=== PATIENT | male | born 1945 | race Caucasian/White ===

== ENCOUNTER 2023-01-05 13:57 | Outpatient (OUT) | payer MEDICARE, SELFPAY ==
[2023-01-05 15:02] LABS: Prostate Specific Antigen Dx 6.59 ng/mL (<=4.00)
== END 2023-01-05 13:58 ==
LOC: LAB 14:01
PROVIDERS: PCP Family Medicine; Visit Provider Urology
DX: R97.20 Elevated prostate specific antigen [PSA] (principal)
CPT/HCPCS: 36415; 84153

== ENCOUNTER 2023-05-02 13:35 | Outpatient (OUT) | payer MEDICARE, SELFPAY ==
--- NOTE | 2023-05-02 13:45 | XR_ITS ---
The [address] [address] Patient Name: LYUDMILA BECERRIL MRN: [id number] date: 1945 Sex: M Assigned Patient Location: [facility] Current Patient Location: [facility] Accession/Order Number: [id number] Exam Date: 05/02/2023 13:52 Report Date: 05/02/2023 15:56 At the request of: ANA RODRIGUEZ Procedure: XR chest 2V EXAM: XR chest 2V HISTORY: Bronchitis J40 COMPARISON: None. TECHNIQUE: Frontal and lateral views of the chest. FINDINGS: The lungs are clear. Flow inspiratory volumes on the PA view. No pleural effusion or pneumothorax. The cardiomediastinal silhouette is unremarkable. No acute osseous or soft tissue abnormality. XR/XR chest 2V IMPRESSION: 1. No acute cardiopulmonary process. Electronically authenticated by: MAC PABON Date: 05/02/2023 15:56
== END 2023-05-02 13:36 | disposition home or self-care (01) ==
LOC: RAD 13:39
PROVIDERS: PCP Family Medicine; Visit Provider Family Medicine
DX: J40 Bronchitis, not specified as acute or chronic (principal)
CPT/HCPCS: 71046

== ENCOUNTER 2023-05-15 09:52 | Outpatient (OUT) | payer MEDICARE, SELFPAY ==
[2023-05-15 10:23] LABS: Basophils Absolute Auto 0.1 10^3/uL (0.0-0.1); Basophils Percent Auto 0.8 % (0.2-2.0); Eosinophils Absolute Auto 0.4 10^3/uL (0.0-0.7); Eosinophils Percent Auto 4.4 % (0.9-7.0); Hematocrit 40.6 % (42.0-54.0); Hemoglobin 12.9 g/dL (14.0-18.0); Immature Granulocytes Abs Auto 0.03 10^3/uL (0.00-0.03); Immature Granulocytes Pct Auto 0.4 % (0.0-0.5); Lymphocytes Absolute Auto 1.6 10^3/uL (1.2-3.8); Lymphocytes Percent Auto 19.2 % (20.5-60.0); Mean Corpuscular HGB Conc 31.8 g/dL (29.9-35.2); Mean Corpuscular Hemoglobin 27.7 pg (25.9-34.0); Mean Corpuscular Volume 87.3 fL (80.0-94.0); Monocytes Percent Auto 11.8 % (1.7-12.0); Neutrophils Absolute Auto 5.4 10^3/uL (1.4-6.5); Neutrophils Percent Auto 63.4 % (43.0-75.0); Platelet Count 254 10^3/uL (150-450); Red Blood Count 4.65 10^6/uL (4.70-6.10); Red Cell Distribution Width 16.5 % (11.0-15.0); White Blood Count 8.5 10^3/uL (4.0-11.0)
[2023-05-15 11:08] LABS: Alanine Aminotransferase 30 U/L (16-63); Albumin Globulin Ratio 0.9; Albumin Level 3.8 g/dL (3.4-5.0); Alkaline Phosphatase 71 U/L (46-116); Anion Gap 15.2; Aspartate Amino Transferase 20 U/L (15-37); BUN Creatinine Ratio 22.6; Bilirubin Total 0.5 mg/dL (0.2-1.0); Calcium 9.9 mg/dL (8.5-10.1); Carbon Dioxide 26.1 mmol/L (21.0-32.0); Chloride 101 mmol/L (98-107); Chol HDL Ratio 3.3; Cholesterol 159 mg/dL (<=200); Estimated GFR (African America >60 (>=60); Estimated GFR (Non-African Ame >60 (>=60); Glucose 100 mg/dL (74-106); HDL Cholesterol 48 mg/dL (40-60); LDL Cholesterol Calculated 88.4 mg/dL; Potassium 4.3 mmol/L (3.5-5.1); Sodium 138 mmol/L (136-145); Total Protein 7.8 g/dL (6.4-8.2); Triglycerides 113 mg/dL (<=150); VLDL CHOLESTEROL 22.6 mg/dL
== END 2023-05-15 09:53 | disposition home or self-care (01) ==
LOC: LAB 09:55
PROVIDERS: PCP Family Medicine; Visit Provider Nurse Practitioner Acute Care
DX: I25.10 Atherosclerotic heart disease of native coronary artery without angina pectoris (principal); E78.2 Mixed hyperlipidemia
CPT/HCPCS: 36415; 80053; 80061; 85025

== ENCOUNTER 2023-12-23 08:03 | Outpatient (OUT) | payer MEDICARE, SELFPAY ==
[2023-12-23 09:24] LABS: Chol HDL Ratio 2.7; Cholesterol 112 mg/dL (<=200); HDL Cholesterol 42 mg/dL (40-60); LDL Cholesterol Calculated 41.6 mg/dL; Triglycerides 142 mg/dL (<=150); VLDL CHOLESTEROL 28.4 mg/dL
== END 2023-12-23 08:04 | disposition home or self-care (01) ==
PROVIDERS: PCP Family Medicine
DX: E78.2 Mixed hyperlipidemia (principal)
CPT/HCPCS: 36415; 80061

== ENCOUNTER 2024-01-19 08:18 | Outpatient (OUT) | payer MEDICARE, SELFPAY ==
--- NOTE | 2024-01-19 | NM_ITS ---
Patient Name: LYUDMILA BECERRIL MR#: [id number] : 1945 Exam Date: 01/19/2024 Ordering Doctor: DR VINCE JACOBSON M.D. RADIOLOGY REPORT PROCEDURE: NM LISA PERF SPECT REST STR COMPARISON: None. INDICATIONS: OTHER CHEST PAIN TECHNIQUE: Exam Description: Stress/Rest one day protocol gated SPECT Rest Imagin.2 mCi Tc-99m Cardiolite IV on 01/19/2024 Stress Imaging 29.7 mCi Tc-99m Cardiolite IV on 01/19/2024 Exercise Protocol: Zaki Heart Rate (bpm): Rest: 67 Max: 126 PMHR: 87 Blood Pressure: Rest: 120/72 Max: 160/74 Exercise Time: Minutes: 5 Seconds: 26 Stage Reached: Stage: 2 Mets 7.0 Symptoms: neck pain Rest and peak stress ECG findings were abnormal and the exercise portion of the study was abnormal per attending physician Dr. Jacobson due to EKG changes. For more details please see separate cardiac stress test report. FINDINGS: QUALITY OF STUDY: Excellent. PERFUSION DEFECT: None. LOCATION: N/A SIZE: N/A. SEVERITY: N/A. TYPE: N/A. WALL MOTION: Normal. LV SIZE: Normal. 56 mL. TID / TCD: None; 0.8 LVEF: Normal. Calculated EF 79%. SUMMARY: Myocardial perfusion imaging study is NORMAL. CONCLUSION: 1. Normal myocardial perfusion scan with no reversible ischemia 2. Abnormal exercise test secondary to EKG changes Dictated by: Maged Day MD on 01/19/2024 at 13:31 Approved by: Maged Day MD on 01/19/2024 at 13:34
--- NOTE | 2024-01-19 | PCN_ITS ---
CARDIAC STRESS TEST Requesting Physician: Procedure Date: 01/19/2024 This was a treadmill exercise stress test with myocardial perfusion imaging performed at the [facility] on 01/19/2024. Informed consent was obtained. The patient was attached to electrocardiographic monitoring. An intravenous line was secured. Baseline vital signs and EKG were obtained. The patient exercised on the treadmill according to the Zaki protocol for a total of 5 minutes and 26 seconds, and reached stage 2 of the Zaki protocol and achieved 7 METS. Resting heart rate was 67 and maximum heart rate was 126 BPM, representing 87% of maximal predicted heart rate. Resting blood pressure was 120/72 and maximum blood pressure was 160/74. Resting ECG showed normal sinus rhythm with no ischemic changes. ECG during peak exercise showed evidence of sinus tachycardia with [address] segment depressions in leads 2, 3, AVF, V4, V5, V6. ECG during recovery showed resolution of the ischemic changes and sinus rhythm. The patient did not have symptoms during the test. SUMMARY OF THE FINDINGS: 1. Positive treadmill exercise stress test for evidence of ischemic ECG changes. 2. Mccurdy treadmill score of -4.5 is associated with an intermediate risk for snf cardiac events. 3. Myocardial perfusion images will be reported separately. GRETCHEND
--- NOTE | 2024-01-19 08:20 | CA_ITS ---
Patient Name: LYUDMILA BECERRIL MR#: [id number] : 1945 Exam Date: 01/19/2024 Ordering Doctor: DR VINCE JACOBSON M.D. ECHOCARDIOGRAM REPORT PROCEDURE: CA ECHO DOPPLER COMPLETE INDICATIONS: Dyspnea COMPARISON: None. DESCRIPTION: COMPLETE ECHOCARDIOGRAM Real-time transthoracic echocardiography with 2D, M-mode, spectral and color flow Doppler performed. QUALITY: Technical quality was good. LEFT VENTRICLE: Normal chamber size. Proximal septal hypertrophy (sigmoid septum). Mild concentric hypertrophy. Global left ventricular systolic function is normal. LV EF: Estimated left ventricular ejection fraction is 60% DIASTOLIC: Normal diastolic function. ATRIAL SEPTUM: LEFT ATRIUM: Normal chamber size. RIGHT ATRIUM: Normal chamber size. RIGHT VENTRICLE: Normal chamber size. Normal right ventricular systolic function. TRICUSPID VALVE: Normal mobility and thickness. No stenosis with trivial regurgitation. No evidence of pulmonary hypertension. RVSP 26 mmHg MITRAL VALVE: Normal mobility and thickness. No evidence of mitral valve stenosis. There is no mitral annular calcification. Trivial mitral regurgitation. AORTIC VALVE: Normal trileaflet appearance. Normal leaflet mobility. No evidence of aortic valve stenosis. No aortic regurgitation. AORTIC ROOT: Normal diameter and appearance. PULMONIC VALVE: Normal thickness and mobility. No stenosis. Trivial regurgitation. PERICARDIUM: No evidence of pericardial effusion. IVC: Collapses with inspirations. Normal size. PLEURA: CONCLUSION: 1. Mild concentric left ventricular hypertrophy with normal systolic function. LVEF is estimated at 60%. 2. Normal diastolic function. 3. Normal right ventricular size and systolic function. 4. No significant valvular dysfunction. 5. Normal right-sided pressures. Adult Echocardiography Procedure Report Left Ventricle LVEDD (3.7 - 5.6 cm): 4.13 cm LVESD (2.2 - 4.0 cm): 2.56 cm LVIVS thickness (0.6 - 1.2 cm): 1.17 cm LVPW thickness (0.5 - 1.0 cm): 1.02 cm e': 0.10 m/s E - e': 7.42 LVOT Max Gradient: 4.05 mm[Hg] LVOT Area (cm2): 1.01 m/s Peak Velocity (LVOT): 1.01 m/s Mean Velocity (LVOT): 0.66 m/s LVOT Diameter 2.05 cm Left Ventricular Ejection Fraction: 60 % Left Atrium LA Volume Index (2D A2C): 26.24 ml/m2 Left Atrium Systolic Dimension: 4.21 cm Mitral Valve MV E to A Ratio: 1 Mitral Valve A-Wave Peak Velocity: 0.76 m/s Mitral Valve E-Wave Peak Velocity: 0.76 m/s Right Ventricle RV Internal Diastolic Dimension: 3.17 cm Aorta AO Root Diam: 2.92 cm Ascending Ao Diam: 2.99 cm Aortic Valve AoV Area (Peak Alexander): 2.63 cm2, 2.63 cm2 AoV Area (VTI): 2.91 cm2, 2.91 cm2 Peak Velocity(Antegrade Flow): 1.26 m/s Peak Gradient(Antegrade Flow): 6.39 mm[Hg] Mean Velocity(Antegrade Flow): 0.83 m/s Mean Gradient(Antegrade Flow): 3.21 mm[Hg] Velocity Time Integral: 27.48 cm Tricuspid Valve Peak Velocity (Regurgitant Flow): 1.70 m/s, 2.42 m/s, 1.92 m/s Pulmonic Valve Mean Gradient: 2.69 mm[Hg], 3.24 mm[Hg] Mean Velocity: 0.76 m/s, 0.81 m/s Peak Velocity: 1.35 m/s Peak Gradient: 5.93 mm[Hg], 8.70 mm[Hg] Right Atrium Right Atrium Systolic Pressure: 20.20 ml, 20.20 ml Dictated by: Vince Jacobson M.D. on 01/22/2024 at 16:29 Approved by: Vince Jacobson M.D. on 01/22/2024 at 16:31
== END 2024-01-19 08:19 | disposition home or self-care (01) ==
LOC: NM 08:18
PROVIDERS: PCP Family Medicine; Visit Provider Internal Medicine Interventional Cardiology
DX: R07.89 Other chest pain (principal); R06.2 Wheezing
CPT/HCPCS: 78452; 93017; 93306; A9500

== ENCOUNTER 2024-02-12 09:12 | Outpatient (OUT) | payer MEDICARE, SELFPAY ==
--- OUTSIDE RECORDS SUMMARY | 2024-02-12 09:24 | XMS_ITS | CCD ---
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 Name Role Phone Merna Zee Unavailable Misha Kyle Unavailable MaryAsad khan Unavailable ANANYA RODRIGUEZ Primary Care Physician MD Ananya Rodriguez Primary Care Provider MD Dev Mckenzie Attending Provider Rishabh Draper Unavailable Anthony Rodriguez Unavailable Sylvia Enriquez Unavailable MD Ananya Rodriguez Primary Care Provider MD Rishabh Draper Attending Provider [phone] Ananya Rodriguez Unavailable Feng Marie Unavailable DR ANANYA RODRIGUEZ Consulting Unavailable JENNIFER, DR ANANYA Power Attending Unavailable JENNIFER, DR ANANYA Power Admitting Unavailable JENNIFER, DR ANANYA Power Primary Care Unavailable DR DEV GUTIERREZ Consulting Unavailable BHARAT Navas, DR BAIRES Attending Unavailable BHARAT Navas, DR BAIRES Admitting Unavailable JENNIFER, DR ANANYA Power Primary Care Unavailable JENNIFER, DR ANANYA Power Attending Unavailable JENNIFER, DR ANANYA Power Admitting Unavailable JENNIFER, DR ANANYA Power Primary Care Unavailable JENNIFER, DR ANANYA Power Consulting Unavailable SYLVIA ENRIQUEZ Admitting Unavailable SYLVIA ENRIQUEZ Attending Unavailable JENNIFER, DR ANANYA Power Primary Care Unavailable OTIS ., JARED Admitting Unavailable OTIS ., JARED Attending Unavailable DR JAMIN SIMS Consulting Unavailable JENNIFER, DR ANANYA oPwer Primary Care Unavailable JONN Navas, DR PETERSON Consulting Unavailable CHRISTINE DAVID Consulting Unavailable MACARIO BLANCHARD Consulting Unavailable SISTER, ALTHEA Consulting Unavailable OTIS ., JARED Consulting Unavailable DR ANANYA RODRIGUEZ Primary Care Unavailable JAIRO, DR CLARKE Admitting Unavailable DR VINCE GILL Consulting Unavailable JAIRO, DR CLARKE Attending Unavailable MD Ananya Rodriguez Primary Care Provider [phone] MD Rishabh Draper Attending Provider [phone] MD Sylvia Enriquez Attending Provider Ananya Rodriguez Primary Care Unavailable Sylvia Barros Attending Unavailable Sylvia Barros Admitting Unavailable MD Sylvia Barros Attending Provider MD Ananya Rodriguez Primary Care Provider [phone] Dev MCKENZIE Attending Unavailable Dev MCKENZIE Attending Unavailable Dev MCKENZIE Attending Unavailable Dev MCKENZIE Referring Unavailable Dev MCKENZIE Admitting Unavailable VINCE GILL Attending Unavailable EDUIN CURRY Attending Unavailable Allergies Allergy Classification Reported Allergen(s) Allergy Type Date of Onset Reaction(s) Facility (1 source) atorvastatin; Translations: [ATORVASTATIN] Drug Allergy 07-26-2017 [facility] Repository Medications Current Medications Medication Drug Class(es) Dates Sig (Normalized) Sig (Original) acetaminophen 325 mg oral tablet (8 sources) take 1 tablet by mouth every four hours Tylenol 325 MG 1 tablet as needed Orally every 4 hrs Active [id number] actuat albuterol 0.09 mg/actuat metered dose inhaler (2 sources) beta2-Adrenergic Agonist Start: 05-02-2023 take 2 puff(s) by inhalation every four hours as needed Albuterol Sulfate HFA 108 (90 Base) MCG/ACT 2 puff Inhalation every 4 hrs prn Apr, Active ascorbic acid 500 mg oral capsule (1 source) Vitamin C Vitamin C 500 MG Orally Active aspirin 81 mg delayed release oral tablet (18 sources) Platelet Aggregation Inhibitor, Nonsteroidal Anti-inflammatory Drug Start: 08-17-2021 take 81 mg by mouth once daily at bedtime Aspirin Active 81 MG PO Daily at bedtime August 17, 2021 3:00pm Start: 09-25-2019 aspirin 81 mg, Refills(s) 0 Start Date: 09/25/19 Status: Ordered Start: 04-20-2018 End: 08-17-2021 take 1 dose by mouth twice daily Aspirin Discontinued 81 MG PO Twice daily 0 April 20, 2018 12:00am August 17, 2021 3:01pm Last dose ~ 2 months ago Start: 04-04-2018 End: 04-20-2018 take 1 tablet by mouth once daily at bedtime Aspirin (Aspirin Low Dose) 81 mg Tablet,Delayed Release (Dr/Ec) Discontinued 81 MG PO Daily at bedtime April 04, 2018 12:00am April 20, 2018 1:17pm azithromycin 250 mg oral tablet (2 sources) Macrolide Antimicrobial Start: 04-13-2023 Azithromycin 250 MG as directed Orally 2 tabs po today, then 1 tab daily x 4 more days for 5 Apr, Active benzonatate 200 mg oral capsule (2 sources) Non-narcotic Antitussive Start: 04-13-2023 take 1 capsule by mouth every eight hours Benzonatate 200 MG 1 capsule Orally Three times a day for 10 day(s) Apr, Active calcium carbonate 750 mg chewable tablet (5 sources) Start: 06-17-2019 Calcium Carbonate (Tums E-X) 300 mg (750 mg) Tablet,Chewable Active 2 TAB PO As Directed June 17, 2019 1:00am cefdinir 300 mg oral capsule (2 sources) Cephalosporin Antibacterial Start: 05-02-2023 Cefdinir 300 MG as directed Orally bid for 7 days Apr, Active cephalexin 500 mg oral tablet (3 sources) Cephalosporin Antibacterial Start: 09-25-2019 take 1 capsule by mouth every twelve hours Keflex 500 MG 1 capsule Orally every 12 hrs for 10 day(s) Sep, Active cholecalciferol 0.025 mg oral tablet (5 sources) Vitamin D Start: 08-17-2021 take 1 tablet by mouth once daily Cholecalciferol (Vitamin D3) (Vitamin D3) 25 mcg (1,000 unit) Tablet Active 25 MCG PO Daily August 17, 2021 1:00am clobetasol propionate 0.5 mg/ml topical cream (1 source) Corticosteroid Clobetasol Propionate 0.05 % 1 application Externally Twice a day for 10 days Active colchicine 0.6 mg oral tablet (8 sources) Start: 07-17-2019 Colchicine 0.6 MG take 2 tablets, then take 1 tablet 1 hour after first two Orally Jul, Active CoQ10 (3 sources) Start: 09-25-2019 take 1 mg by mouth once daily CoQ10 mg, Oral, Daily, Refills(s) 0 Start Date: 09/25/19 Status: Ordered Diclofenac (20 sources) Nonsteroidal Anti-inflammatory Drug Start: 01-19-2023 Pennsaid 2 % 2 pumps Externally Twice a day for 30 days Jan, Active Start: 01-19-2023 Pennsaid 2 % 2 pumps Externally Twice a day for 30 days Jan, Active Start: 01-19-2023 Voltaren 1 % a pply 1-2 grams to the affected area Externally BID for 30 days Jan, Active Start: 01-19-2023 Voltaren 1 % a pply 1-2 grams to the affected area Externally BID for 30 days Jan, Active Start: 10-12-2022 take 75 mg by mouth once daily Diclofenac Sodium Active 75 MG PO Daily October 12, 2022 1:00am Start: 09-07-2022 take 1 tablet by thang th every twelve hours Diclofenac Sodium 75 MG 1 tablet as needed Orally Twice a day for 30 days Sep, Active Start: 01-01-2020 Voltaren 1 % a pply 1-2 grams to affected area Transdermal BID for 30 days December, Active Start: 06-17-2019 End: 08-17-2021 take 75 mg by mouth twice daily at mealtime Diclofenac Sodium Discontinued 75 MG PO TWICE DAILY WITH MEALS June 17, 2019 1:00am August 17, 2021 3:00pm finasteride 1 mg oral tablet (10 sources) 5-alpha Reductase Inhibitor Start: 12-06-2022 take 1 mg by mouth once daily Finasteride Active 1 MG PO Daily December 06, 2022 12:00am hydroCHLOROthiazide 12.5 mg / losartan potassium 50 mg oral tablet (8 sources) Thiazide Diuretic, Angiotensin 2 Receptor Bobby Start: 01-15-2021 take 1 tablet by mouth once daily in the morning Losartan-Hydroch lorothiazide Active 1 TAB PO Every morning August 17, 2021 1:00am Hydrochlorothiazide-25 mg 25 MG (8 sources) take 1 tablet by mouth once daily in the morning Hydrochlorothiaz karyn-25 mg 25 MG 1 tablet in the morning Orally Once a day Active Opbrh-Ow-8-Cfz-Fzj-Iukkjb o-Ast (Megared Stratton-3 Krill Oil) [phone] mg Capsule (5 sources) Start: 04-04-2018 Pcsul-Ou-6-Dha-E rz-Ecikkvc-Hvl (Megared Stratton-3 Krill Oil) [phone] mg Capsule Active 1 CAP PO Daily at bedtime April 03, 2018 11:00pm Start: 04-04-2018 Awxqz-Jz-8-Dha -Mvo-Xvsmanb-Zlk (Megared Stratton-3 Krill Oil) [phone] mg Capsule Active 1 CAP PO Daily at bedtime April 04, 2018 12:00am losartan potassium 25 mg oral tablet (20 sources) Angiotensin 2 Receptor Bobby Start: 01-06-2023 losartan 25 mg Tab Refills(s) 0 Start Date: 01/06/23 Status: Ordered Start: 04-04-2018 End: 08-17-2021 take 50 mg by mouth once daily in the morning Losartan Discontinued 50 MG PO Every morning April 04, 2018 12:00am August 17, 2021 2:59pm Low-Dose Aspirin (15 sources) Low-Dose Aspirin Active MegaRed Stratton-3 Krill Oil 500 MG (8 sources) MegaRed Stratton-3 Krill Oil 500 MG Orally Active 24 hr metoprolol succinate 25 mg extended release oral tablet (20 sources) beta-Adrenergic Bobby Start: 01-17-2020 take 25 mg by mouth once daily at bedtime Metoprolol Succinate Active 25 MG PO Daily at bedtime August 17, 2021 1:00am take 1 capsule by mouth once adrianna ly Metoprolol Succinate 25 MG 1 capsule Orally Once a day Active metroNIDAZOLE 500 mg oral tablet (15 sources) Nitroimidazole Antimicrobial take 1 tablet by mouth every twelve hours metroNIDAZOLE 500 MG 1 tablet Orally twice a day Active Stratton 3 500 (20 sources) Stratton 3 500 Not- Taking Stratton 3 500 Acti ve omeprazole 20 mg oral tablet (20 sources) Proton Pump Inhibitor Start: 09-25-2019 take 20 mg by mouth once daily omeprazole 20 mg, Oral, Daily, Refills(s) 0 Start Date: 09/25/19 Status: Ordered Start: 04-20-2018 End: 06-17-2019 take 20 mg by mouth once daily Omeprazole Discontinued 20 MG PO Daily June 17, 2019 12:48pm June 17, 2019 1:13pm Start: 04-04-2018 take 20 mg by mouth two times weekly Omeprazole Active 20 MG PO Twice a Week April 04, 2018 12:00am potassium citrate 10 meq extended release oral tablet (20 sources) Start: 08-17-2021 take 30 mEq by mouth twice daily Potassium Citrate Active 30 MEQ PO Twice daily August 17, 2021 12:00am Start: 01-17-2020 take 10 mEq by mouth twice adrianna ly Potassium Citrate Active 10 MEQ PO Twice daily August 17, 2021 1:00am take 3 tablets by [facility] every twelve hours Potassium Citrate ER 10 MEQ (1080 MG) 3 tablets Orally Twice a day for 30 day(s) Active Qunol Ultra CoQ10 100-150 MG -UNIT (20 sources) Qunol Ultra CoQ1 0 100-150 MG-UNIT Orally Not-Taking Qunol Ultra CoQ1 0 100-150 MG-UNIT Orally Active rosuvastatin 20 mg oral capsule (20 sources) HMG-CoA Reductase Inhibitor Start: 09-25-2019 take 20 mg by mouth once daily rosuvastatin 20 mg, Oral, Daily, Refills(s) 0 Start Date: 09/25/19 Status: Ordered Start: 04-04-2018 take 10 mg by mouth once daily at bedtime Rosuvastatin Active 10 MG PO Daily at bedtime April 04, 2018 12:00am take 1 tablet by [facility] every twenty-four hours Rosuvastatin Calcium 20 MG 1 tablet Orally Once a day Active ubidecarenone 100 mg oral capsule (5 sources) Start: 04-04-2018 Coenzyme Q10 (Coq-10) 100 mg Capsule Active 100 MG PO Every morning April 04, 2018 12:00am ubiquinol 100 mg oral capsule (4 sources) Qunol Ultra CoQ1 0 100-150 MG-UNIT Orally Active Vitamin A (3 sources) Vitamin A Start: 09-25-2019 vitamin A Refills(s) 0 Start Date: 09/25/19 Status: Ordered Vitamin A 36439 UNIT (20 sources) take 1 capsule by mouth once daily Vitamin A 70834 UNIT 1 capsule Orally Once a day Not-Taking take 1 capsule by mouth once adrianna ly Vitamin A 24126 UNIT 1 capsule Orally Once a day Active Vitamin A-Vitamin C-Vitamin E (5 sources) Start: 08-17-2021 take 1 tablet by mouth once daily Vitamin A-Vitamin C-Vitamin E Active 1 TAB PO Daily August 17, 2021 12:00am Start: 08-17-2021 take 1 tablet by thang th once daily Vitamin A-Vitamin C-Vitamin E Active 1 TAB PO Daily August 17, 2021 1:00am Vitamin C 500 MG (20 sources) Vitamin C 500 MG Orally Not-Taking Vitamin C 500 MG Orally Active Vitamin D3 (20 sources) Vitamin D3 Not-T aking Vitamin D3 Activ e Vitamin E (3 sources) Start: 09-25-2019 vitamin E Oral , Daily, Refills(s) 0 Start Date: 09/25/19 Status: Ordered Vitamin E 100 UNIT (20 sources) take 1 capsule by mouth once daily Vitamin E 100 UNIT 1 capsule Orally Once a day Not-Taking take 1 capsule by mouth once adrianna ly Vitamin E 100 UNIT 1 capsule Orally Once a day Active Completed/Discontinued Medications Medication Drug Class(es) Dates Sig (Normalized) Sig (Original) acetaminophen 325 mg / HYDROcodone bitartrate 5 mg oral tablet (5 sources) Opioid Agonist Start: 08-26-2021 End: 10-12-2022 take 1 tablet by mouth every four to six hours Hydrocodone-Acetami nophen Discontinued 1 - 2 TAB PO EVERY 4-6 HOURS 50 7 August 26, 2021 October 12, 2022 9:09am acetaminophen 325 mg / oxyCODONE hydrochloride 5 mg oral tablet (10 sources) Opioid Agonist Start: 07-02-2019 End: 08-17-2021 take 1 tablet by mouth every four to six hours Oxycodone-Acetamino phen (Percocet) 5-325 mg tablet Discontinued 1 - 2 TAB PO EVERY 4-6 HOURS 30 July 02, 2019 August 17, 2021 3:01pm Start: 04-20-2018 End: 06-17-2019 take 1 tablet by mouth every three hours Oxycodone-Acetaminophen Discontinued 1 T AB PO Q3H April 20, 2018 June 17, 2019 12:58pm apixaban 2.5 mg oral tablet (10 sources) Factor Xa Inhibitor Start: 07-01-2019 End: 08-17-2021 take 1 tablet by mouth twice daily Apixaban (Eliquis) 2.5 mg Tablet Discontinued 2.5 MG PO Twice daily July 02, 2019 1:00am August 17, 2021 3:00pm ciprofloxacin 500 mg oral tablet (13 sources) Quinolone Antimicrobial Start: 01-06-2023 Cipro 500 mg Tab 500 mg = 1 tab(s), Oral, As Directed, Patient to take 1 tab the day before procedure and the 2nd tab the day of procedure once completed, # 2 tab(s), Refills(s) 0, Pharmacy: [facility]/pharmacy #[id number], 160, cm, 01/06/23 8:34:00 EDT, Height/Length Dosing, 70,... Start Date: 01/06/23 Status: Ordered take 1 tablet by mouth every twe lve hours Cipro 500 MG 1 tablet Orally every 12 hrs Active docusate sodium 100 mg oral capsule (5 sources) Start: 07-02-2019 End: 08-17-2021 take 100 mg by mouth twice daily Docusate Sodium Discontinued 100 MG PO Twice daily 0 July 02, 2019 1:00am August 17, 2021 3:00pm doxycycline hyclate 100 mg oral tablet (5 sources) Tetracycline- class Drug Start: 08-26-2021 End: 10-12-2022 take 100 mg by mouth twice daily Doxycycline Hyclate Discontinued 100 MG PO Twice daily 10 August 26, 2021 1:00am October 12, 2022 9:09am hyaluronate (20 sources) Start: 02-06-2018 Euflexxa 03 Ju l, 2017 2 mL Start: 01-30-2018 Euflexxa 26 Ju n, 2017 2 mL Start: 01-22-2018 Euflexxa 18 Ju n, 2017 2 mL hydroCHLOROthiazide 25 mg oral tablet (5 sources) Thiazide Diuretic Start: 04-04-2018 End: 08-17-2021 take 12.5 mg by mouth once daily in the morning Hydrochlorothiazide Discontinued 12.5 MG PO Every morning April 04, 2018 12:00am August 17, 2021 3:00pm hydrOXYzine pamoate 50 mg oral capsule (15 sources) Antihistamine Start: 07-02-2019 End: 08-17-2021 take 25 mg by mouth every three hours Hydroxyzine Pamoate Discontinued 25 MG PO Q3H 0 July 02, 2019 1:00am August 17, 2021 3:01pm Start: 07-02-2019 End: 08-17-2021 take 50 mg by mouth every three hours Hydroxyzine Pamoate Discontinued 50 MG PO Q3H 0 July 02, 2019 1:00am August 17, 2021 3:00pm Start: 04-20-2018 End: 06-17-2019 take 50 mg by mouth every three hours Hydroxyzine Pamoate Discontinued 50 MG PO Q3H 0 April 20, 2018 12:00am June 17, 2019 12:45pm triamcinolone acetonide 40 mg/ml injectable suspension (20 sources) Corticosteroid Start: 10-19-2022 Kenalog-40 Jan, 40 mg Start: 06-29-2021 Kenalog -40 mg Jun, 40 mg Start: 06-23-2021 Kenalog -40 mg Jun, 20 mg Start: 02-24-2021 Kenalog -40 mg Feb, 20 mg Start: 12-02-2020 Kenalog -40 mg Nov, 40 mg Start: 09-23-2020 Kenalog -40 mg Sep, 40 mg Start: 01-01-2020 Kenalog -40 mg December, 40 mg Start: 05-08-2019 Kenalog -40 mg May, 40 mg Start: 11-28-2018 Kenalog -40 mg Nov, 40 mg Vitamin A,C,E And Zinc (5 sources) Start: 04-04-2018 End: 06-17-2019 take 1 tablet by mouth once daily in the morning Vitamin A,C,E And Zinc Discontinued 1 TAB PO Every morning April 03, 2018 11:00pm June 17, 2019 11:48am Start: 04-04-2018 End: 06-17-2019 take 1 tablet by mouth once daily in the morning Vitamin A,C,E And Zinc Discontinued 1 TAB PO Every morning April 04, 2018 12:00am June 17, 2019 12:48pm Problems Active Problems Problem Classification Problem Date Documented Da te Episodic/Chronic Acute posthemorrhagic anemia (5 sources) Acute posthemorrhagic anemia; Translations: [ACUTE POSTHEMORRHAGIC ANEMIA] Onset: 11-29-2022 Episodic Allergic reactions (1 source) Dermatitis, unspecified Episodic Calculus of urinary tract (10 sources) Kidney stone; Translations: [Calculus of kidney] Onset: 01-05-2022 Episodic Chronic obstructive pulmonary disease and bronchiectasis (2 sources) Bronchitis, not specified as acute or chronic Episodic Complication of device; implant or graft (3 sources) Pain due to internal orthopedic prosthetic devices, implants and grafts, initial encounter; Translations: [Pain due to knee joint prosthesis] Onset: 12-26-2023 12-26-2023 Episodic Coronary atherosclerosis and other heart disease (2 sources) Atherosclerotic heart disease of [place] coronary artery without angina pectoris; Translations: [Atherosclerotic heart disease of [place] coronary artery without angina pectoris] Onset: 11-24-2023 Chronic Deficiency and other anemia (5 sources) Anemia due to blood loss; Translations: [Iron deficiency anemia secondary to blood loss (chronic)] Chronic Disorders of lipid metabolism (7 sources) Hyperlipidemia; Translations: [Pure hypercholesterolemia, unspecified] Onset: 10-27-2022 09-25-2019 Chronic Esophageal disorders (1 source) Gastro-esophageal reflux disease without esophagitis; Translations: [GERD WITHOUT ESOPHAGITIS] Onset: 10-27-2022 Chronic Essential hypertension (14 sources) Hypertensive disorder; Translations: [Essential (primary) hypertension] Onset: 10-27-2022 09-25-2019 Chronic Gastrointestinal hemorrhage (5 sources) Melena; Translations: [MELENA] Onset: 10-27-2022 Episodic Genitourinary symptoms and ill-defined conditions (2 sources) Post-void dribbling; Translations: [Post-void dribbling] Onset: 01-05-2022 Chronic Genitourinary symptoms and ill-defined conditions (9 sources) Abnormal urinary product; Translations: [Hypocitraturia] Onset: 12-30-2021 Episodic Gout and other crystal arthropathies (20 sources) Primary gout; Translations: [Idiopathic gout, right ankle and foot] Chronic Headache; including migraine (1 source) Headache; including migraine; Translations: [HEADACHE UNSPECIFIED] Onset: 09-20-2022 Hyperplasia of prostate (7 sources) Benign prostatic hypertrophy with outflow obstruction; Translations: [Benign prostatic hyperplasia with lower urinary tract symptoms] Onset: 01-05-2022 Chronic Inflammatory conditions of male genital organs (3 sources) Prostatitis 09-25-2019 Episodic Noninfectious gastroenteritis (2 sources) Noninfective gastroenteritis and colitis, unspecified; Translations: [NONINFECTIVE GE AND COLITIS UNS] Onset: 10-27-2022 Episodic Nonspecific chest pain (2 sources) Other chest pain; Translations: [Other chest pain] Onset: 11-03-2022 Episodic Osteoarthritis (20 sources) Osteoarthritis of right knee joint; Translations: [Unilateral primary osteoarthritis, right knee] Onset: 06-23-2021 Resolved: 2022 Chronic Other aftercare (15 sources) Post-discharge follow-up; Translations: [Encounter for follow-up examination after completed treatment for conditions other than malignant neoplasm] Episodic Other aftercare (1 source) Encounter for follow-up examination after completed treatment for conditions other than malignant neoplasm Episodic Other aftercare (1 source) long term care phlebotomist (current) use of aspirin; Translations: [SNF CURRENT USE OF ASPIRIN] Onset: 10-27-2022 Episodic Other aftercare (1 source) Other intermediate card tender (current) drug therapy; Translations: [OTH LIVE TRUCK TECHNICIAN CURRENT DRUG THERAPY] Onset: 10-27-2022 Episodic Other bone disease and musculoskeletal deformities (1 source) Other specified disorders of bone, lower leg; Translations: [Other specified disorders of bone, lower leg] Onset: 12-26-2023 Episodic Other bone disease and musculoskeletal deformities (2 sources) Bone pain; Translations: [Other specified disorders of bone, lower leg] 12-26-2023 Episodic Other connective tissue disease (20 sources) History of total knee arthroplasty; Translations: [Presence of left artificial knee joint] 07-02-2019 Chronic Other connective tissue disease (1 source) Presence of right artificial knee joint Onset: 06-29-2021 Resolved: 06-29-2021 Chronic Other connective tissue disease (3 sources) Presence of left artificial knee joint; Translations: [Knee joint replacement] Onset: 12-26-2023 12-26-2023 Chronic Other connective tissue disease (8 sources) Ganglion, left hand Onset: 06-23-2021 Resolved: 2022 Episodic Other connective tissue disease (8 sources) Radial styloid tenosynovitis [de Quervain] Onset: 06-23-2021 Resolved: 2022 Episodic Other connective tissue disease (4 sources) Palmar fascial fibromatosis [Dupuytren] Onset: 2022 Resolved: 2022 Episodic Other connective tissue disease (20 sources) Contracture of palmar fascia; Translations: [Palmar fascial fibromatosis [Dupuytren]] Episodic Other diseases of bladder and urethra (1 source) Disorder of bladder; Translations: [Other specified disorders of bladder] Onset: 01-06-2023 Chronic Other diseases of bladder and urethra (2 sources) Hypertrophy of bladder 01-06-2023 Chronic Other diseases of kidney and ureters (1 source) Acquired renal cyst 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; Translations: [Cyst of kidney, acquired] Onset: 01-06-2023 Episodic Other diseases of kidney and ureters (2 sources) Cyst of kidney 01-06-2023 Episodic Other lower respiratory disease (2 sources) Shortness of breath; Translations: [Shortness of breath] Onset: 11-24-2023 Episodic Other nervous system disorders (20 sources) Chronic pain; Translations: [Other chronic pain] Chronic Other nervous system disorders (5 sources) Other chronic pain Chronic Other nervous system disorders (5 sources) Pain in limb; Translations: [Other acute postprocedural pain] 08-26-2021 Episodic Other screening for suspected conditions (not mental disorders or infectious disease) (3 sources) Imaging result abnormal; Translations: [Abnormal findings on diagnostic imaging of other specified body structures] Onset: 01-06-2023 Chronic Other screening for suspected conditions (not mental disorders or infectious disease) (6 sources) Raised prostate specific antigen; Translations: [Elevated prostate specific antigen [PSA]] Onset: 01-05-2022 Episodic Rehabilitation care; fitting of prostheses; and adjustment of devices (1 source) Encounter for fitting and adjustment of other specified devices Onset: 09-07-2021 Resolved: 09-07-2021 Chronic Residual codes; unclassified (7 sources) Other specified postprocedural states; Translations: [OTH SPECIFIED POSTPROCEDURAL STATES] Onset: 09-03-2021 Resolved: 2022 Episodic Septicemia (except in labor) (2 sources) Sepsis, unspecified organism; Translations: [Severe sepsis without septic shock] Onset: 10-27-2022 Episodic Spondylosis; intervertebral disc disorders; other back problems (20 sources) Cervical spondylosis without myelopathy; Translations: [Spondylosis without myelopathy or radiculopathy, cervical region] Onset: 11-24-2021 Resolved: 11-24-2021 Chronic Spondylosis; intervertebral disc disorders; other back problems (11 sources) Cervicalgia; Translations: [Occipital neuralgia] Onset: 09-13-2022 Episodic Sprains and strains (4 sources) Strain of muscle of lower limb; Translations: [Strain of unspecified muscle(s) and tendon(s) at lower leg level, left leg, initial encounter] 12-26-2023 Episodic Unclassified (3 sources) Urine finding 03-21-2022 Urinary tract infections (1 source) Cystitis, unspecified without hematuria Episodic Past or Other Problems Problem Classification Problem Date Documented Da te Episodic/Chronic Other connective tissue disease (2 sources) Pain in left finger(s) Onset: 06-23-2021 Resolved: 08-11-2021 Episodic Other connective tissue disease (1 source) Trochanteric bursitis, right hip Onset: 06-29-2021 Resolved: 06-29-2021 Episodic Other non-traumatic joint disorders (1 source) Pain in right hip Onset: 06-29-2021 Resolved: 06-29-2021 Episodic Results Test Name Value Interpretation Reference Range Facility 36on 2024 36 Regarding stress test: MD Savi Moe MA His stress test showed ischemia by ECG and given his prior CAD history and chest pain, I want to proceed with coronary angiogram, diagnoses: CAD with other forms of angina, abnormal stress test. Patient made aware. Orders entered. [facility] [facility] Orders Onlyon 2024 Orders Only [id number] Lyudmila Becerril 1945 M Date Provider Department Center 2024 [id number] Family History Problem Relation Age of Onset Coronary artery disease Father Family Status - Relation Status Age at Father Normal [facility] XR tibia fibula LT 2V*on XR tibia fibula LT 2V* [facility] [address] [place] [address] XRay Report Signed Patient: Lyudmila Becerril MR#: [id number] : 1945 Acct:[id number] Age/Sex: 78 / M ADM Date: 12/26/23 Loc: [facility] Room: Type: [facility] Attending Dr: Sylvia Barros MD Copies to: Sylvia Barros MD Ordering Provider: Sylvia Barros MD Date of Service: 12/26/23 XR/XR knee LT 2V: T84.84XA - Pain due to internal orthopedic prosthetic dev... ([id number]) XR/XR tibia fibula LT 2V*: M89.8X6 - Other specified disorders of bone, lower leg CLINICAL DATA: Left knee pain for the past couple weeks after hearing a pop. Previous patellar fracture and knee replacement. LEFT KNEE - 2 views COMPARISON: 03/02/2021 and 05/08/2019 AP and lateral weightbearing views were obtained. A knee prosthesis is again visualized. Screws are again noted along the lateral distal femoral metadiaphysis. There is a chronic-appearing bony ossicle along the inferior pole of the patella which correlates with fracture seen previously. There is no new fracture or dislocation. There is no significant knee effusion or soft tissue swelling. XR/XR knee LT 2V IMPRESSION: STABLE POSTOPERATIVE AND POSTTRAUMATIC CHANGES. NO ACUTE FINDINGS. LEFT TIB-FIB - 2 views COMPARISON: Left knee 02/10/2021 AP and lateral views were obtained. A knee prosthesis is visualized. A similar bony ossicle is seen along the inferior aspect of the patella correlating with a known remote fracture. There is no acute fracture or dislocation. No soft tissue swelling is identified. IMPRESSION: NO ACUTE BONY FINDINGS. Impression dictated by: Evelyn Nava M.D.12/26/2023 12:01 PM Dictation Location: [place] [address] Transcribed By: [facility] 12/26/23 1201 Dictated By: Evelyn Nava MD 12/26/23 1157 Signed By: 12/26/23 1201 Normal [facility] Cholesterol in LDL Calc [Mas s/Vol]on 12-23-2023 Cholesterol in LDL [Mass/Vol] 41.6 mg/dL [facility] Comment on above: <100 mg/dl [id number] 0-129 mg/dl NEAR OR ABOVE [id number] mg/dl BORDERLINE [id number] mg/dl HIGH>190 mg/dl VERY HIGH Cholesterol in VLDL Calc [Ma ss/Vol]on 12-23-2023 Cholesterol in VLDL [Mass/Vol] 28.4 mg/dL [facility] Laboratory - Chemistry and C hemistry - challengeon 12-23-2023 Cholesterol [Mass/Vol] 112 mg/dL <=200 [facility] Cholesterol in HDL [Mass/Vol] 42 mg/dL 40-60 [facility] Comment on above: > or =60 mg/dl - LOW CARDIOVASCULAR RISK<40 mg/dl - HIGH CARDIOVASCULAR RISK Triglyceride [Mass/Vol] 142 mg/dL <=150 [facility] Serum or plasma total choles terol/high density lipoprotein (HDL) cholesterol mass troy 12-23-2023 Cholesterol.total/Cho lesterol in HDL [Mass ratio] 2.7 {ratio} [facility] Comment on above: 3.3 - 4.4 LOW RISK4. 4 - 7.1 AVERAGE RISK7.1 - 11.0 MODERATE RISK>11.0 HIGH RISK Office Visiton 11-24-2023 Follow-up visit [id number] Lyudmila Becerril 1945 [facility] Provider Department Center 11/24/2023 VINCE ANNE PIERRE Varghese Family History Problem Relation Age of Onset Coronary artery disease Father Family Status - Relation Status Age at Father Level of Service:43493 [place] OFFICE/OUTPATIENT ESTABLISHED MOD MDM 30 MIN Reason for Visit and Comments: Follow-up [363956] - 6 month follow up Normal [facility] Office Visiton 05-15-2023 Follow-up visit [id number] Lyudmila Becerril 1945 [facility] Provider Department Center 05/15/2023 [id number]-FSONVSDIREDUIN GONSALVES PIERRE Varghese Family History Problem Relation Age of Onset Coronary artery disease Father Family Status - Relation Status Age at Father Level of Service:71978 [place] OFFICE/OUTPATIENT ESTABLISHED LOW MDM 20-29 MIN Normal [facility] Consent for Procedure/Surger yon 01-31-2023 Consent for Procedure/Surgery [id number]#1.00CD:127 Normal [facility] Consent for Treatmenton -2 Consent for Treatment [id number] #1.00CD:127 Normal [facility] IntraOperative Documentson 0 01-31-2023 IntraOperative Documents [id number] 4#1.00CD:127 Normal [facility] Main OR Intraoperative Recor don 01-31-2023 Main OR Intraoperative Record IntraOp Document Type FTURO Summary Primary Physician: Dev MCKENZIE MD Finalized Date/Time: 01/31/23 09:22:01 Pt. Name: LYUDMILA BECERRIL /Sex: 1945 Male Med Rec #: [id number] Physician: Dev MCKENZIE MD Financial #: [id number] Pt. Type: O Room/Bed: / Admit/Disch: 01/31/23 08:12:15 - Institution: Case Times FTURO Entry 1 Patient Times In Room 01/31/23 09:09:00 Out Room 01/31/23 09:25:00 Procedure Times Start 01/31/23 09:18:00 Stop 01/31/23 09:21:00 Anesthesia Times Last Modified By: Jaosn NICOLAS, Sejal Yang 01/31/23 09:21:55 Case Attendance FTURO Entry 1 Entry 2 Entry 3 Case Attendee BHARAT GARCIA, Dev Gomez RN, Aris Thornton Role Performed Surgeon - Primary Cuff Stitcher - Primary Scrub - Primary Time In 01/31/23 09:09:00 01/31/23 09:09:00 01/31/23 09:09:00 Time Out 01/31/23 09:25:00 01/31/23 09:25:00 01/31/23 09:25:00 Procedure CYSTOSCOPY LOCAL(.) CYSTOSCOPY LOCAL(.) CYSTOSCOPY LOCAL(.) Comments Last Modified By: Jason NICOLAS, Sejal Gomez RN, Sejal Gomez RN, Sejal Yang 01/31/23 Regina Yang 01/31/23 Regina Yang 01/31/23 09:21:58 09:21:58 09:21:58 Surgical Procedures FTURO Entry 1 Procedure Description Procedure CYSTOSCOPY LOCAL Modifiers . Surgeon Description CYSTOSCOPY Primary Procedure Yes Primary Surgeon Dev MCKENZIE MD Start 01/31/23 09:18:00 Stop 01/31/23 09:21:00 Anesthesia Type Local Surgical Service Urology Wound Class 2 - Clean-Contaminated Last Modified By: GomezSejal mares RN 01/31/23 09:21:57 General Case Data FTURO Pre-Care Text: Classifies surgical wound, implements aseptic technique, initiates traffic control Entry 1 Case Information OR URO 1 FT Case Level None Wound Class 2 - Clean-Contaminated Specialty Urology Preop Diagnosis BLADDER WALL THICKING Postop Same As Preop Yes KIDNEY STONES ELEVATED PSA Postop Diagnosis BLADDER WALL THICKING Outcomes Met? Yes KIDNEY STONES ELEVATED PSA Last Modified By: Sejal Gomez RN 01/31/23 09:10:38 Post-Care Text: The patient is free from signs and symptoms of infection EU IntraOp - FTURO Pre-Care Text: Implements protective measures prior to operative or invasive procedure, confirms identity before the operative or invasive procedure, verifies operative procedure, surgical site, and laterality Entry 1 EU Perioperative Protocols Procedure(s) CYSTOSCOPY LOCAL(.) Patient Identity Birthday, ID Band Verified (select at Check, Patient least 2): Participation Consents / H and P HandP, Surgery/Procedure Operative Site N/A Verified Consent Marking Verified Surgical Site Yes Laterality Verified n/a Verified Procedure Verified Yes Correct Patient Yes Position Verified Availability Equipment, Medication Time Out BHARAT GARCIA, Dev Mares, Verified (If Participants Sejal Gomez RN Applicable) Melina Alvarado Kendall R Time Out Complete 01/31/23 09:11:00 Allergies Reviewed? Yes Allergies Reviewed Self/Patient With Body Position Supine Prep Area PENIS Prep Agents Betadine Solution Skin. Condition Unable to Visualize Description PATIALY CLOTHED Additional None Specimens Collected Vitals - EU Blood Pressure 140/94 Pulse 84 bpm Respirations 16 br/min SPO2 98 % IandO - EU Outcomes Met? Yes Last Modified By: Sejal Gomez RN 01/31/23 09:12:42 Post-Care Text: The patient is free from signs and symptoms of injury caused by extraneous objects Sign Out FTURO Entry 1 Before Patient Leaves OR Nurse verbally Yes Nurse verbally Yes confirms with the confirms with the team the name of team that the procedure(s) instrument, sponge, recorded and needle counts are correct (or N/A) Nurse verbally n/a Nurse verbally Yes confirms with the confirms with the team how the team whether there specimen is labeled are any equipment (including patient problems to be name), if applicable addressed Sign Out Complete 01/31/23 09:21:00 Last Modified By: Sejal Gomez RN 01/31/23 09:21:57 Case Comments Finalized By: Sejal Gomez RN Document Signatures Signed By: Sejal Gomez RN 01/31/23 09:22 Normal [facility] Main OR Preoperative Recordo n 01-31-2023 Main OR Preoperative Record Holding Area Document Type FTURO Summary Primary Physician: Dev MCKENZIE MD Finalized Date/Time: 01/31/23 08:26:21 Pt. Name: LYUDMILA BECERRIL Ashley Monsivais/Sex: 1945 Male Med Rec #: [id number] Physician: Dev MCKENZIE MD Financial #: [id number] Pt. Type: O Room/Bed: / Admit/Disch: 01/31/23 08:12:15 - Institution: Case Times Holding FTURO Pre-Care Text: Verifies consent for planned procedure, identifies individual values and wishes concerning care, includes family members in perioperative teaching Secures patient's records' belongings, and valuables, maintains patient's dignity and privacy, and maintains patient confidentiality Entry 1 In Holding 01/31/23 08:19:00 Outcomes Met? Yes Last Modified By: Marissa Kendall RN 01/31/23 08:19:28 Post-Care Text: The patient participates in decisions affecting his or her perioperative plan of care The patient's right to privacy is maintained Surgery Checklist FTURO Entry 1 Patient Birthday, ID Band Procedure History and Physical, Identification: Check, Patient Verification: Surgical Consent, With Participation Patient NPO after Midnight: n/a Personal Items: Glasses, Jewelry Personal Items glasses; earrings x 2; Limitations: up ad bernarda Comment: necklace x 1; rings 2 Complaints of Pain: No Skin Integrity Dry, Warm Vitals - EU Blood Pressure 140/94 Pulse 84 bpm Respirations 16 br/min SPO2 98 % Additional None RN Reviewed Yes Specimens Collected Last Modified By: Marissa Kendall RN 01/31/23 08:26:15 Finalized By: Marissa Kendall RN Document Signatures Signed By: Marissa Kendall RN 01/31/23 08:26 Normal [facility] Operative Reporton 3 Operative Report Patient: LYUDMILA BECERRIL Age: 78 years Sex: Male : 1945 Associated Diagnoses: None Author: Dev MCKENZIE MD Procedure Operative Information Details: Date/ Time: 01/31/2023 09:24:00. Pre-Op Dx: Bladder Mass - D41.4. Post-Op Dx: Same. Anesthesia Type: Local. Procedure: Local Cystoscopy. Complications: None. Risks/Benefits/Infor med Consent: Surgical risks, benefits, details of the procedure have been explained to the patient, Full informed consent has been obtained. Intraoperative Information Prepped: Patient is brought back to the endoscopy suite, Patient is placed in supine position, Patient prepped in the usual fashion with Betadine solution, 2% Xylocaine Jelly is placed per Urethra, After waiting several minutes the Cystoscope is introduced. The Urethra is: Normal. The Prostatic Urethra is: Unobstructed, Mild lateral lobe regrowth. No evidence of bleeding areas.. The Bladder is: Trabeculated (Severe (3), Scattered small open diverticuli. No bladder tumors.). The ureteral orifices: Show efflux of clear urine. Devices Implanted: None. Removal: Cystoscope is removed, The patient tolerated it well. Postoperative Information Discharge: Patient is discharged home with antibiotic coverage, Follow up arranged. Normal [facility] Comment on above: Result Comment: Elec tronically Signed By: Dev MCKENZIE MD\.br\Date and Time Signed: 01/31/23 09:25 EDT Pre-Certification Formon Pre-Certification Form [id number] #1.00CD:127 Normal [facility] CBC AUTO DIFFon 11-29-2022 BASO # 0.1 103/ul Normal 0.0-0.1 [facility] Comment on above: Performed By: #### C BC #### [facility] [address] [place] [address] [address] Yue Paez Basophils/100 WBC (Bld) 0.5 % Normal 0.2-2.0 [facility] Comment on above: Performed By: #### C BC #### [facility] [address] [place] [address] Dr. Yue Paez EO # 0.3 103/ul Normal 0.0-0.7 [facility] Comment on above: Performed By: #### C BC #### [facility] [address] [place] [address] Dr. Yue Paez Eosinophils/100 WBC (Bld) 2.5 % Normal 0.9-7.0 [facility] Comment on above: Performed By: #### C BC #### [facility] [address] [place] [address] Dr. Yue Paez Erythrocyte distribution width (RBC) [Ratio] 14.0 % Normal 11.0-15.0 [facility] Comment on above: Performed By: #### C BC #### [facility] [address] [place] [address] Dr. Yue Paez Hematocrit (Bld) [Volume fraction] 35.1 % Critically low 42.0-54.0 [facility] Comment on above: Performed By: #### C BC #### [facility] [address] [place] [address] Dr. Yue Paez Hemoglobin (Bld) [Mass/Vol] 10.7 g/dL Critically low 14.0-18.0 [facility] Comment on above: Performed By: #### C BC #### [facility] [address] [place] [address] Dr. Yue Paez IG # 0.03 10e3/ul Normal 0.00-0.03 [facility] Comment on above: Performed By: #### C BC #### [facility] [address] [place] [address] Dr. Yue Paez IG % 0.3 % Normal 0.0-0.5 [facility] Comment on above: Performed By: #### C BC #### [facility] [address] [place] [address] Dr. Yue Paez LYMPH # 1.6 103/ul Normal 1.2-3.8 [facility] Comment on above: Performed By: #### C BC #### [facility] [address] [place] [address] [address] Yue Paez Lymphocytes/100 WBC (Bld) 16.1 % Critically low 20.5-60.0 [facility] Comment on above: Performed By: #### C BC #### [facility] [address] [place] [address] [address] Yue Paez MANUAL DIFF REQ NO Normal [facility] Comment on above: Performed By: #### C BC #### [facility] [address] [place] [address] Dr. Yue Paez MCH (RBC) [Entitic mass] 28.4 pg Normal 25.9-34.0 [facility] Comment on above: Performed By: #### C BC #### [facility] [address] [place] [address] Dr. Yue Paez MCHC (RBC) [Mass/Vol] 30.5 g/dL Normal 29.9-35.2 [facility] Comment on above: Performed By: #### C BC #### [facility] [address] [place] [address] Dr. Yue Paez MCV (RBC) [Entitic vol] 93.1 fL Normal 80.0-94.0 [facility] Comment on above: Performed By: #### C BC #### [facility] [address] [place] [address] Dr. Yue Paez MONO # 1.1 103/ul Critically high 0.3-0.8 [facility] Comment on above: Performed By: #### C BC #### [facility] [address] [place] [address] Dr. Yue Paez Monocytes/100 WBC (Bld) 10.6 % Normal 1.7-12.0 [facility] Comment on above: Performed By: #### C BC #### [facility] [address] [place] [address] Dr. Yue Paez NEUT # 7.1 103/ul Critically high 1.4-6.5 [facility] Comment on above: Performed By: #### C BC #### [facility] [address] [address] [address] Yue Paez Neutrophils/100 WBC (Bld) 70.0 % Normal 43.0-75.0 [facility] Comment on above: Performed By: #### C BC #### [facility] [address] [place] [address] [address] Yue Paez Platelet mean volume (Bld) [Entitic vol] 9.0 fL Critically low 9.5-13.5 [facility] Comment on above: Performed By: #### C BC #### [facility] [address] [place] [address] [address] Yue Paez PLT 333 103/ul Normal 150-450 [facility] Comment on above: Performed By: #### C BC #### [facility] [address] [place] [address] [address] Yue Paez RBC 3.77 106/ul Critically low 4.70-6.10 [facility] Comment on above: Performed By: #### C BC #### [facility] [address] [place] [address] [address] Yue Paez WBC 10.1 103/ul Normal 4.0-11.0 [facility] Comment on above: Performed By: #### C BC #### [facility] [address] [place] [address] Dr. Yue Paez PROF CHEM 8 (BAS METB)on Anion gap [Moles/Vol] 13.7 mmol/L Normal [facility] Comment on above: Performed By: #### L ACT #### [facility] [address] [place] [address] Dr. Yue Paez Calcium [Mass/Vol] 9.4 mg/dL Normal 8.5-10.1 [facility] Comment on above: Performed By: #### L ACT #### [facility] [address] [address] [address] Yue Paez Chloride [Moles/Vol] 105 mmol/L Normal 98-107 [facility] Comment on above: Performed By: #### L ACT #### [facility] [address] [address] [address] Yue Paez CO2 [Moles/Vol] 26.6 mmol/L Normal 21.0-32.0 [facility] Comment on above: Performed By: #### L ACT #### [facility] [address] [address] [address] Yue Paez Creatinine [Mass/Vol] 1.16 mg/dL Normal 0.70-1.30 [facility] Comment on above: Performed By: #### L ACT #### [facility] [address] [address] [address] Yue Paez EGFR-AF PALAUAN >60 Normal >=60 [facility] Comment on above: Performed By: #### L ACT #### [facility] [address] [place] [address] [address] Yue Paez EGFR-NON AF PALAUAN >60 Normal >=60 [facility] Comment on above: Performed By: #### L ACT #### [facility] [address] [address] [address] Yue Paez Glucose [Mass/Vol] 99 mg/dL Normal 74-106 [facility] Comment on above: Performed By: #### L ACT #### [facility] [address] [address] [address] Yue Paez Potassium [Moles/Vol] 4.3 mmol/L Normal 3.5-5.1 [facility] Comment on above: Performed By: #### L ACT #### [facility] [address] [address] [address] Yue Paez Sodium [Moles/Vol] 141 mmol/L Normal 136-145 [facility] Comment on above: Performed By: #### L ACT #### [facility] [address] [address] [address] Yue Paez Urea nitrogen [Mass/Vol] 19.0 mg/dL Critically high 7.0-18.0 [facility] Comment on above: Performed By: #### L ACT #### [facility] [address] [place] [address] [address] Yue Paez Urea nitrogen/Creatinine [Mass ratio] 16.4 mg/mg Normal [facility] Comment on above: Performed By: #### L ACT #### [facility] [address] [place] [address] Dr. Yue Paez CBC AUTO DIFFon 10-27-2022 BASO # 0.1 103/ul Normal 0.0-0.1 [facility] Comment on above: Performed By: #### C BC #### [facility] [address] [place] [address] Dr. Yue Paez Basophils/100 WBC (Bld) 0.5 % Normal 0.2-2.0 [facility] Comment on above: Performed By: #### C BC #### [facility] [address] [place] [address] Dr. Yue Paez EO # 0.2 103/ul Normal 0.0-0.7 [facility] Comment on above: Performed By: #### C BC #### [facility] [address] [place] [address] Dr. Yue Paez Eosinophils/100 WBC (Bld) 1.1 % Normal 0.9-7.0 [facility] Comment on above: Performed By: #### C BC #### [facility] [address] [place] [address] Dr. Yue Paez Erythrocyte distribution width (RBC) [Ratio] 15.1 % Critically high 11.0-15.0 [facility] Comment on above: Performed By: #### C BC #### [facility] [address] [place] [address] Dr. Yue Paez Hematocrit (Bld) [Volume fraction] 28.3 % Critically low 42.0-54.0 [facility] Comment on above: Performed By: #### C BC #### [facility] [address] [place] [address] Dr. Yue Paez Hemoglobin (Bld) [Mass/Vol] 9.5 g/dL Critically low 14.0-18.0 [facility] Comment on above: Performed By: #### C BC #### [facility] [address] [place] [address] Dr. Yue Paez IG # 0.35 10e3/ul Critically high 0.00-0.03 [facility] Comment on above: Performed By: #### C BC #### [facility] [address] [place] [address] Dr. Yue Paez IG % 2.4 % Critically high 0.0-0.5 [facility] Comment on above: Performed By: #### C BC #### [facility] [address] [place] [address] Dr. Yue Paez LYMPH # 2.3 103/ul Normal 1.2-3.8 [facility] Comment on above: Performed By: #### C BC #### [facility] [address] [place] [address] Dr. Yue Paez Lymphocytes/100 WBC (Bld) 16.1 % Critically low 20.5-60.0 [facility] Comment on above: Performed By: #### C BC #### [facility] [address] [place] [address] Dr. Yue Paez MANUAL DIFF REQ NO Normal [facility] Comment on above: Performed By: #### C BC #### [facility] [address] [place] [address] Dr. Yue Paez MCH (RBC) [Entitic mass] 32.2 pg Normal 25.9-34.0 [facility] Comment on above: Performed By: #### C BC #### [facility] [address] [place] [address] Dr. Yue Paez MCHC (RBC) [Mass/Vol] 33.6 g/dL Normal 29.9-35.2 [facility] Comment on above: Performed By: #### C BC #### [facility] [address] [place] [address] Dr. Yue Paez MCV (RBC) [Entitic vol] 95.9 fL Critically high 80.0-94.0 [facility] Comment on above: Performed By: #### C BC #### [facility] [address] [place] [address] Dr. Yue Paez MONO # 1.5 103/ul Critically high 0.3-0.8 [facility] Comment on above: Performed By: #### C BC #### [facility] [address] [place] [address] Dr. Yue Paez Monocytes/100 WBC (Bld) 10.3 % Normal 1.7-12.0 [facility] Comment on above: Performed By: #### C BC #### [facility] [address] [place] [address] Dr. Yue Paez NEUT # 10.0 103/ul Critically high 1.4-6.5 [facility] Comment on above: Performed By: #### C BC #### [facility] [address] [place] [address] Dr. Yue Paez Neutrophils/100 WBC (Bld) 69.6 % Normal 43.0-75.0 [facility] Comment on above: Performed By: #### C BC #### [facility] [address] [place] [address] Dr. Yue Paez Platelet mean volume (Bld) [Entitic vol] 9.6 fL Normal 9.5-13.5 [facility] Comment on above: Performed By: #### C BC #### [facility] [address] [place] [address] Dr. Yue Paez PLT 374 103/ul Normal 150-450 [facility] Comment on above: Performed By: #### C BC #### [facility] [address] [place] [address] Dr. Yue Paez RBC 2.95 106/ul Critically low 4.70-6.10 [facility] Comment on above: Performed By: #### C BC #### [facility] [address] [place] [address] Dr. Yue Paez WBC 14.4 103/ul Critically high 4.0-11.0 [facility] Comment on above: Performed By: #### C BC #### [facility] [address] [place] [address] Dr. Yue Paez STOOL CULTUREon 10-25-2022 Campylobacter Culture Final report Normal [facility] Comment on above: Performed By: #### C XSTOOL #### [facility] [address] [address] [address] Yue Paez E coli Shiga Toxin EIA Negative Normal Negative [facility] Comment on above: Performed By: #### C XSTOOL #### [facility] [address] [place] [address] Dr. Yue Paez Result 1 Comment Normal [facility] Comment on above: Result Comment: No S almonella or Shigella recovered. Performed By: #### C XSTOOL #### [facility] [address] [place] [address] Dr. Yue Paez Result Comment: No C ampylobacter species isolated. Salmonella/Shigella Screen Final report Normal [facility] Comment on above: Performed By: #### C XSTOOL #### [facility] [address] [place] [address] Dr. Yue Paez CBC AUTO DIFFon 10-22-2022 BASO # 0.0 103/ul Normal 0.0-0.1 [facility] Comment on above: Performed By: #### H GBHCT #### [facility] [address] [place] [address] Dr. Yue Paez Basophils/100 WBC (Bld) 0.3 % Normal 0.2-2.0 [facility] Comment on above: Performed By: #### H GBHCT #### [facility] [address] [place] [address] Dr. Yue Paez EO # 0.0 103/ul Normal 0.0-0.7 [facility] Comment on above: Performed By: #### H GBHCT #### [facility] [address] [place] [address] Dr. Yue Paez Eosinophils/100 WBC (Bld) 0.1 % Critically low 0.9-7.0 [facility] Comment on above: Performed By: #### H GBHCT #### [facility] [address] [place] [address] Dr. Yue Paez Erythrocyte distribution width (RBC) [Ratio] 13.7 % Normal 11.0-15.0 [facility] Comment on above: Performed By: #### H GBHCT #### [facility] [address] [address] [address] Yue Paez Hematocrit (Bld) [Volume fraction] 24.4 % Critically low 42.0-54.0 [facility] Comment on above: Performed By: #### H GBHCT #### [facility] [address] [place] [address] Dr. Yue Paez Hemoglobin (Bld) [Mass/Vol] 8.1 g/dL Critically low 14.0-18.0 [facility] Comment on above: Performed By: #### H GBHCT #### [facility] [address] [place] [address] Dr. Yue Paez IG # 0.10 10e3/ul Critically high 0.00-0.03 [facility] Comment on above: Performed By: #### H GBHCT #### [facility] [address] [place] [address] Dr. Yue Paez IG % 0.8 % Critically high 0.0-0.5 [facility] Comment on above: Performed By: #### H GBHCT #### [facility] [address] [place] [address] Dr. Yue Paez LYMPH # 1.7 103/ul Normal 1.2-3.8 [facility] Comment on above: Performed By: #### H GBHCT #### [facility] [address] [place] [address] Dr. Yue Paez Lymphocytes/100 WBC (Bld) 14.3 % Critically low 20.5-60.0 [facility] Comment on above: Performed By: #### H GBHCT #### [facility] [address] [place] [address] Dr. Yue Paez MANUAL DIFF REQ NO Normal [facility] Comment on above: Performed By: #### H GBHCT #### [facility] [address] [place] [address] Dr. Yue Paez MCH (RBC) [Entitic mass] 31.4 pg Normal 25.9-34.0 [facility] Comment on above: Performed By: #### H GBHCT #### [facility] [address] [place] [address] Dr. Yue Paez MCHC (RBC) [Mass/Vol] 33.2 g/dL Normal 29.9-35.2 [facility] Comment on above: Performed By: #### H GBHCT #### [facility] [address] [place] [address] Dr. Yue Paez MCV (RBC) [Entitic vol] 94.6 fL Critically high 80.0-94.0 [facility] Comment on above: Performed By: #### H GBHCT #### [facility] [address] [place] [address] Dr. Yue Paez MONO # 1.1 103/ul Critically high 0.3-0.8 [facility] Comment on above: Performed By: #### H GBHCT #### [facility] [address] [place] [address] Dr. Yue Paez Monocytes/100 WBC (Bld) 9.6 % Normal 1.7-12.0 [facility] Comment on above: Performed By: #### H GBHCT #### [facility] [address] [place] [address] Dr. Yue Paez NEUT # 8.9 103/ul Critically high 1.4-6.5 [facility] Comment on above: Performed By: #### H GBHCT #### [facility] [address] [place] [address] Dr. Yue Paez Neutrophils/100 WBC (Bld) 74.9 % Normal 43.0-75.0 [facility] Comment on above: Performed By: #### H GBHCT #### [facility] [address] [place] [address] Dr. Yue Paez Platelet mean volume (Bld) [Entitic vol] 11.0 fL Normal 9.5-13.5 [facility] Comment on above: Performed By: #### H GBHCT #### [facility] [address] [address] [address] Yue Paez PLT 173 103/ul Normal 150-450 [facility] Comment on above: Performed By: #### H GBHCT #### [facility] [address] [address] [address] Yue Paez RBC 2.58 106/ul Critically low 4.70-6.10 [facility] Comment on above: Performed By: #### H GBHCT #### [facility] [address] [address] [address] Yue Paez WBC 11.8 103/ul Critically high 4.0-11.0 [facility] Comment on above: Performed By: #### H GBHCT #### [facility] [address] [address] [address] Yue Paez HEMOGLOBIN AND HEMATOCRITon 10-22-2022 Hematocrit (Bld) [Volume fraction] 24.3 % Critically low 42.0-54.0 [facility] Comment on above: Performed By: #### H GBHCT #### [facility] [address] [address] [address] Yue Paez Hemoglobin (Bld) [Mass/Vol] 8.3 g/dL Critically low 14.0-18.0 [facility] Comment on above: Performed By: #### H GBHCT #### [facility] [address] [place] [address] Dr. Yue Paez Hematocrit (Bld) [Volume fraction] 24.2 % Critically low 42.0-54.0 [facility] Comment on above: Performed By: #### H GBHCT #### [facility] [address] [address] [address] Yue Paez Hemoglobin (Bld) [Mass/Vol] 8.1 g/dL Critically low 14.0-18.0 [facility] Comment on above: Performed By: #### H GBHCT #### [facility] [address] [place] [address] Dr. Yue Paez PROF 14(COMP METB)on 023 Albumin [Mass/Vol] 3.4 g/dL Normal 3.4-5.0 [facility] Comment on above: Performed By: #### C MP #### [facility] [address] [place] [address] Dr. Yue Paez Albumin/Globulin [Mass ratio] 1.4 {ratio} Normal [facility] Comment on above: Performed By: #### C MP #### [facility] [address] [address] [address] Yue Paez ALP [Catalytic activity/Vol] 43 U/L Critically low 46-116 [facility] Comment on above: Performed By: #### C MP #### [facility] [address] [address] [address] Yue Paez ALT [Catalytic activity/Vol] 22 U/L Normal 16-63 [facility] Comment on above: Performed By: #### C MP #### [facility] [address] [place] [address] Dr. Yue Paze Anion gap [Moles/Vol] 14.3 mmol/L Normal [facility] Comment on above: Performed By: #### C MP #### [facility] [address] [address] [address] Yue Paez AST [Catalytic activity/Vol] 13 U/L Critically low 15-37 [facility] Comment on above: Performed By: #### C MP #### [facility] [address] [place] [address] Dr. Yue Paez Bilirubin [Mass/Vol] 0.3 mg/dL Normal 0.2-1.0 [facility] Comment on above: Performed By: #### C MP #### [facility] [address] [place] [address] Dr. Yue Paze Calcium [Mass/Vol] 8.9 mg/dL Normal 8.5-10.1 [facility] Comment on above: Performed By: #### C MP #### [facility] [address] [place] [address] Dr. Yue Paez Chloride [Moles/Vol] 109 mmol/L Critically high 98-107 [facility] Comment on above: Performed By: #### C MP #### [facility] [address] [address] [address] Yue Paez CO2 [Moles/Vol] 23.8 mmol/L Normal 21.0-32.0 [facility] Comment on above: Performed By: #### C MP #### [facility] [address] [address] [address] Yue Paez Creatinine [Mass/Vol] 0.77 mg/dL Normal 0.70-1.30 [facility] Comment on above: Performed By: #### C MP #### [facility] [address] [address] [address] Yue Paez EGFR-AF PALAUAN >60 Normal >=60 [facility] Comment on above: Performed By: #### C MP #### [facility] [address] [place] [address] Dr. Yue Paez EGFR-NON AF PALAUAN >60 Normal >=60 [facility] Comment on above: Performed By: #### C MP #### [facility] [address] [address] [address] Yue Paez Globulin (S) [Mass/Vol] 2.5 g/dL Normal [facility] Comment on above: Performed By: #### C MP #### [facility] [address] [address] [address] Yue Paez Glucose [Mass/Vol] 114 mg/dL Critically high 74-106 [facility] Comment on above: Performed By: #### C MP #### [facility] [address] [place] [address] Dr. Yue Paez Potassium [Moles/Vol] 4.1 mmol/L Normal 3.5-5.1 [facility] Comment on above: Performed By: #### C MP #### [facility] [address] [address] [address] Yue Paez Protein [Mass/Vol] 5.9 g/dL Critically low 6.4-8.2 [facility] Comment on above: Performed By: #### C MP #### [facility] [address] [place] [address] Dr. Yue Paez Sodium [Moles/Vol] 143 mmol/L Normal 136-145 [facility] Comment on above: Performed By: #### C MP #### [facility] [address] [place] [address] Dr. Yue Paez Urea nitrogen [Mass/Vol] 16.0 mg/dL Normal 7.0-18.0 [facility] Comment on above: Performed By: #### C MP #### [facility] [address] [place] [address] Dr. Yue Paez Urea nitrogen/Creatinine [Mass ratio] 20.8 mg/mg Normal [facility] Comment on above: Performed By: #### C MP #### [facility] [address] [place] [address] Dr. Yue Paez CBC AUTO DIFFon 10-21-2022 BASO # 0.0 103/ul Normal 0.0-0.1 [facility] Comment on above: Performed By: #### C BC #### [facility] [address] [place] [address] Dr. Yue Paez Basophils/100 WBC (Bld) 0.1 % Critically low 0.2-2.0 [facility] Comment on above: Performed By: #### C BC #### [facility] [address] [place] [address] Dr. Yue Paez EO # 0.0 103/ul Normal 0.0-0.7 [facility] Comment on above: Performed By: #### C BC #### [facility] [address] [place] [address] Dr. Yue Paez Eosinophils/100 WBC (Bld) 0.0 % Critically low 0.9-7.0 [facility] Comment on above: Performed By: #### C BC #### [facility] [address] [place] [address] Dr. Yue Paez Erythrocyte distribution width (RBC) [Ratio] 13.6 % Normal 11.0-15.0 [facility] Comment on above: Performed By: #### C BC #### [facility] [address] [address] [address] Yue Paez Hematocrit (Bld) [Volume fraction] 27.2 % Critically low 42.0-54.0 [facility] Comment on above: Performed By: #### C BC #### [facility] [address] [place] [address] Dr. Yue Paez Hemoglobin (Bld) [Mass/Vol] 9.1 g/dL Critically low 14.0-18.0 [facility] Comment on above: Performed By: #### C BC #### [facility] [address] [address] [address] Yue Paez IG # 0.08 10e3/ul Critically high 0.00-0.03 [facility] Comment on above: Performed By: #### C BC #### [facility] [address] [place] [address] Dr. Yue Paez IG % 0.5 % Normal 0.0-0.5 [facility] Comment on above: Performed By: #### C BC #### [facility] [address] [place] [address] Dr. Yue Paez LYMPH # 1.2 103/ul Normal 1.2-3.8 [facility] Comment on above: Performed By: #### C BC #### [facility] [address] [place] [address] Dr. Yue Paez Lymphocytes/100 WBC (Bld) 7.9 % Critically low 20.5-60.0 [facility] Comment on above: Performed By: #### C BC #### [facility] [address] [place] [address] Dr. Yue Paez MANUAL DIFF REQ NO Normal [facility] Comment on above: Performed By: #### C BC #### [facility] [address] [place] [address] Dr. Yue Paez MCH (RBC) [Entitic mass] 31.7 pg Normal 25.9-34.0 [facility] Comment on above: Performed By: #### C BC #### [facility] [address] [place] [address] Dr. Yue Paez MCHC (RBC) [Mass/Vol] 33.5 g/dL Normal 29.9-35.2 [facility] Comment on above: Performed By: #### C BC #### [facility] [address] [address] [address] Yue Paez MCV (RBC) [Entitic vol] 94.8 fL Critically high 80.0-94.0 [facility] Comment on above: Performed By: #### C BC #### [facility] [address] [address] [address] Yue Paez MONO # 1.0 103/ul Critically high 0.3-0.8 [facility] Comment on above: Performed By: #### C BC #### [facility] [address] [place] [address] Dr. Yue Paez Monocytes/100 WBC (Bld) 7.0 % Normal 1.7-12.0 [facility] Comment on above: Performed By: #### C BC #### [facility] [address] [place] [address] Dr. Yue Paez NEUT # 12.4 103/ul Critically high 1.4-6.5 [facility] Comment on above: Performed By: #### C BC #### [facility] [address] [place] [address] Dr. Yue Paez Neutrophils/100 WBC (Bld) 84.5 % Critically high 43.0-75.0 [facility] Comment on above: Performed By: #### C BC #### [facility] [address] [place] [address] Dr. Yue Paez Platelet mean volume (Bld) [Entitic vol] 10.7 fL Normal 9.5-13.5 [facility] Comment on above: Performed By: #### C BC #### [facility] [address] [place] [address] Dr. Yue Paez PLT 205 103/ul Normal 150-450 [facility] Comment on above: Performed By: #### C BC #### [facility] [address] [place] [address] Dr. Yue Paez RBC 2.87 106/ul Critically low 4.70-6.10 [facility] Comment on above: Performed By: #### C BC #### [facility] [address] [place], [place] [address] Dr. Yue Paez WBC 14.7 103/ul Critically high 4.0-11.0 [facility] Comment on above: Performed By: #### C BC #### [facility] [address] [place], [place] [address] ABD/PELV W CONon 10-22-19 CT ABD/PELV W CON TECHNIQUE: CT abdomen and pelvis. Helically acquired axial images of the abdomen and pelvis from the diaphragm to the iliac crest and the iliac crest to the symphysis pubis. Sagittal and coronal multiplanar reconstructions. . HISTORY: Blood after bowel movement COMPARISON: No comparison FINDINGS: Lung bases appear clear. The heart size is normal. The liver, gallbladder, spleen, pancreas and bilateral adrenal glands appear unremarkable. Approximately 1 cm low density is seen in the superior pole left kidney, which represent a cyst. Bilateral intrarenal calculi are seen measuring up to 5 mm in the right kidney, and up to 4 mm the left kidney. There is no evidence for hydronephrosis bilaterally. Bilateral kidneys demonstrate normal contrast enhancement. The prostate gland measures approximately 4.8 cm and 5.5 cm in AP and transverse diameter, respectively. Diffuse circumferential wall thickening of the urinary bladder is seen, suggestive of inflammatory process. Additionally, irregular appearance of the posterior urinary bladder base is seen, which may be related to mass effect related to adjacent enlarged prostate gland. However, intrinsic urinary bladder disease cannot be excluded. Please correlate clinically. Nonobstructive bowel pattern is seen. The appendix is not definitely identified. No abnormal pericecal inflammatory changes are seen. Mild wall thickening of the ascending and transverse colon is seen, suggestive of mild colitis. Fluid feces with air-fluid levels are seen in the distal colon, suggestive of diarrheal state. No significant free fluid or abnormal fluid collection is seen in the abdomen and pelvis. Aortic and iliac arterial calcification is seen without aneurysmal dilatation. Abdominal wall and visualized soft tissues appear unremarkable. Mild degenerative changes are seen at the L3-L4 level with mild loss of intervertebral disc height and endplate sclerosis. Degenerative changes are also seen at the L5-S1 level with endplate sclerosis. Mild anterolisthesis of L5 vertebral body is also seen relative to S1. IMPRESSION: Mild wall thickening of the ascending and transverse colon is seen, suggestive of mild colitis. Fluid feces with air-fluid levels are seen in the distal colon, suggestive of diarrheal state. Diffuse circumferential wall thickening of the urinary bladder is seen, suggestive of inflammatory process. Enlarged prostate gland. Bilateral nonobstructive nephrolithiasis. Electronically authenticated by: CHRISTINE DAVID Date: 2022-10-20 23:34 Normal [facility] CULTURE BLOODon 10-21-2022 Microscopic examination of blood, culture Culture Observations: NO GROWTH AT 5 DAYS. Normal [facility] Comment on above: Performed By: #### B [id number] #### [facility] [address] [place] [address] Dr. Yue Paez Performed By: #### H GBHCT #### [facility] [address] [place] [address] Dr. Yue Paez Covid-19 PCR ([facility])on 10-05 SARS-CoV-2 (COVID-19) RNA ADA+probe Ql (Unsp spec) Not detected Normal NOT DETECTED [facility] Comment on above: Result Comment: When diagnostic testing is negative, the possibility of a false negative should be considered in the context of a patient's recent exposures and the presence of clinical signs and symptoms consistent with SARS-CoV-2. This test is not yet approved or cleared by the [place] FDA. When there are no FDA-approved or cleared tests available, and other criteria are met, FDA can make tests available under an emergency access mechanism called an Emergency Use Authorization (EUA). The EUA for this test is supported by the [place] of Health and Human Service's declaration that circumstances exist to justify the emergency use of in vitro diagnostics for the detection and/or diagnosis of the virus that causes COVID-19. This EUA will remain in effect for the duration of the COVID-19 declaration justifying emergency of IVDs, unless it is terminated or revoked by the FDA (after which the test may no longer be used). Performed By: #### L ACT #### [facility] [address] [place] [address] Dr. Yue Paez GI PANEL (PCR)on 10-21-2022 Adenovirus F 40/41 Not detected Normal NOT DETECTED [facility] Comment on above: Performed By: #### H GBHCT #### [facility] [address] [place] [address] Dr. Yue Paez Astrovirus Not detected Normal NOT DETECTED [facility] Comment on above: Performed By: #### H GBHCT #### [facility] [address] [place] [address] Dr. Yue Paez C. Diff toxin A/B Not detected Normal NOT DETECTED [facility] Comment on above: Performed By: #### H GBHCT #### [facility] [address] [place] [address] Dr. Yue Paez Campylobacter Not detected Normal NOT DETECTED [facility] Comment on above: Performed By: #### H GBHCT #### [facility] [address] [place] [address] Dr. Yue Paez Cryptosporidium Not detected Normal NOT DETECTED [facility] Comment on above: Performed By: #### H GBHCT #### [facility] [facility] [address] [place] [address] Dr. Yue Paez Cyclos. Cayetanensis Not detected Normal NOT DETECTED [facility] Comment on above: Performed By: #### H GBHCT #### [facility] [address] [place] [address] Dr. Yue Paez E. Coli O157 Not Applicable Normal Not Applicable [facility] Comment on above: Performed By: #### H GBHCT #### [facility] [address] [place] [address] Dr. Yue Paez E. histolytica Not detected Normal NOT DETECTED [facility] Comment on above: Performed By: #### H GBHCT #### [facility] [address] [place] [address] Dr. Yue Paez EAEC Not detected Normal NOT DETECTED [facility] Comment on above: Performed By: #### H GBHCT #### [facility] [address] [place] [address] Dr. Yue Paez EIEC Not detected Normal NOT DETECTED [facility] Comment on above: Performed By: #### H GBHCT #### [facility] [address] [place] [address] Dr. Yue Paez EPEC Not detected Normal NOT DETECTED [facility] Comment on above: Performed By: #### H GBHCT #### [facility] [address] [address] [address] Yue Paez ETEC Not detected Normal NOT DETECTED [facility] Comment on above: Performed By: #### H GBHCT #### [facility] [address] [place] [address] Dr. Yue Garcialikaitlin Not detected Normal NOT DETECTED [facility] Comment on above: Performed By: #### H GBHCT #### [facility] [address] [place] [address] Dr. Yue SUAREZ CONTROLS PASSED Normal [facility] Comment on above: Performed By: #### H GBHCT #### [facility] [address] [place] [address] Dr. Yue DEL [facility] HEADER GI PANEL BACTERIA Normal [facility] Comment on above: Performed By: #### H GBHCT #### [facility] [address] [place] [address] Dr. Yue CARL ECOLI GI PANEL DIARRHEAGENIC E.COLI / SHIGELLA Normal [facility] Comment on above: Performed By: #### H GBHCT #### [facility] [address] [place] [address] Dr. Yue CARL INFO SEE BELOW Normal [facility] Comment on above: Result Comment: EAEC - Enteroaggregative E. Coli EPEC- Enteropathogenic E. Coli ETEC- Enterotoxigenic E. Coli lt/st STEC- Shigella-like toxin-producing E. Coli stx1/stx2 EIEC- Shigella/Enteroinvasive E. Coli Performed By: #### H GBHCT #### [facility] [address] [place] [address] Dr. Yue CARL PARASITES GI PANEL PARASITES Normal [facility] Comment on above: Performed By: #### H GBHCT #### [facility] [address] [address] [address] Yue CARL VIRUS GI PANEL VIRUSES Normal [facility] Comment on above: Performed By: #### H GBHCT #### [facility] [address] [address] [address] Yue Paez Norovirus GI/GII Not detected Normal NOT DETECTED [facility] Comment on above: Performed By: #### H GBHCT #### [facility] [address] [address] [address] Yue Paez P. Shigelloides Not detected Normal NOT DETECTED [facility] Comment on above: Performed By: #### H GBHCT #### [facility] [address] [place] [address] Dr. Yue Paez Rotavirus A Not detected Normal NOT DETECTED [facility] Comment on above: Performed By: #### H GBHCT #### [facility] [address] [address] [address] Yue Paez Salmonella Not detected Normal NOT DETECTED [facility] Comment on above: Performed By: #### H GBHCT #### [facility] [address] [address] [address] Yue Paez Sapovirus Not detected Normal NOT DETECTED [facility] Comment on above: Performed By: #### H GBHCT #### [facility] [address] [address] [address] Yue Paez STEC Not detected Normal NOT DETECTED [facility] Comment on above: Performed By: #### H GBHCT #### [facility] [address] [address] [address] Yue Paez Vibrio Not detected Normal NOT DETECTED [facility] Comment on above: Performed By: #### H GBHCT #### [facility] [address] [address] [address] Yue Paez Vibrio Cholera Not detected Normal NOT DETECTED [facility] Comment on above: Performed By: #### H GBHCT #### [facility] [address] [place] [address] Dr. Yue Paez Y. Enterocolitica Not detected Normal NOT DETECTED [facility] Comment on above: Performed By: #### H GBHCT #### [facility] [address] [place] [address] Dr. Yue Paez HEMOGLOBIN AND HEMATOCRITon 10-21-2022 Hematocrit (Bld) [Volume fraction] 24.9 % Critically low 42.0-54.0 [facility] Comment on above: Performed By: #### L ACT #### [facility] [address] [place] [address] Dr. Yue Paez Hemoglobin (Bld) [Mass/Vol] 8.5 g/dL Critically low 14.0-18.0 [facility] Comment on above: Performed By: #### L ACT #### [facility] [address] [place] [address] Dr. Yue Paez Hematocrit (Bld) [Volume fraction] 27.2 % Critically low 42.0-54.0 [facility] Comment on above: Performed By: #### H GBHCT #### [facility] [address] [place] [address] Dr. Yue Paez Hemoglobin (Bld) [Mass/Vol] 9.2 g/dL Critically low 14.0-18.0 [facility] Comment on above: Performed By: #### H GBHCT #### [facility] [address] [place] [address] Dr. Yue Paez HEMOGRAM AND PLATELon 2022 Hematocrit (Bld) [Volume fraction] 25.0 % Critically low 42.0-54.0 [facility] Comment on above: Performed By: #### L ACT #### [facility] [address] [place] [address] Dr. Yue Paez Hemoglobin (Bld) [Mass/Vol] 8.5 g/dL Critically low 14.0-18.0 [facility] Comment on above: Performed By: #### L ACT #### [facility] [address] [address] [address] Yue Paez MCH (RBC) [Entitic mass] 32.1 pg Normal 25.9-34.0 [facility] Comment on above: Performed By: #### L ACT #### [facility] [address] [place] [address] Dr. Yue Paez MCHC (RBC) [Mass/Vol] 34.0 g/dL Normal 29.9-35.2 [facility] Comment on above: Performed By: #### L ACT #### [facility] [address] [address] [address] Yue Paez MCV (RBC) [Entitic vol] 94.3 fL Critically high 80.0-94.0 [facility] Comment on above: Performed By: #### L ACT #### [facility] [address] [place] [address] Dr. Yue Paez PLT 203 103/ul Normal 150-450 [facility] Comment on above: Performed By: #### L ACT #### [facility] [address] [place] [address] Dr. Yue Paez RBC 2.65 106/ul Critically low 4.70-6.10 [facility] Comment on above: Performed By: #### L ACT #### [facility] [address] [place] [address] Dr. Yue Paez WBC 13.7 103/ul Critically high 4.0-11.0 [facility] Comment on above: Performed By: #### L ACT #### [facility] [address] [place] [address] Dr. Yue Paez LACTATE/LACTIC ACIDon 2022 Lactate [Moles/Vol] 2.0 mmol/L Normal 0.4-2.0 [facility] Comment on above: Performed By: #### L ACT #### [facility] [address] [place] [address] Dr. Yue Paez OCC BLD IMMUNO SCREENon 10-05 OCCULT BLOOD Positive Abnormal NEGATIVE [facility] Comment on above: Performed By: #### L ACT #### [facility] [address] [address] [address] Yue Paez PROF 14(COMP METB)on 023 Albumin [Mass/Vol] 3.3 g/dL Critically low 3.4-5.0 [facility] Comment on above: Performed By: #### L ACT #### [facility] [address] [address] [address] Yue Paez Albumin/Globulin [Mass ratio] 1.3 {ratio} Normal [facility] Comment on above: Performed By: #### L ACT #### [facility] [address] [address] [address] Yue Paez ALP [Catalytic activity/Vol] 41 U/L Critically low 46-116 [facility] Comment on above: Performed By: #### L ACT #### [facility] [address] [place] [address] Dr. Yue Paez ALT [Catalytic activity/Vol] 24 U/L Normal 16-63 [facility] Comment on above: Performed By: #### L ACT #### [facility] [address] [place] [address] Dr. Yue Paez Anion gap [Moles/Vol] 14.4 mmol/L Normal [facility] Comment on above: Performed By: #### L ACT #### [facility] [address] [place] [address] Dr. Yue Paez AST [Catalytic activity/Vol] 12 U/L Critically low 15-37 [facility] Comment on above: Performed By: #### L ACT #### [facility] [address] [place] [address] Dr. Yue Paez Bilirubin [Mass/Vol] 0.2 mg/dL Normal 0.2-1.0 [facility] Comment on above: Performed By: #### L ACT #### [facility] [address] [place] [address] Dr. Yue Paez Calcium [Mass/Vol] 8.8 mg/dL Normal 8.5-10.1 [facility] Comment on above: Performed By: #### L ACT #### [facility] [address] [address] [address] Yue Paez Chloride [Moles/Vol] 110 mmol/L Critically high 98-107 [facility] Comment on above: Performed By: #### L ACT #### [facility] [address] [address] [address] Yue Paez CO2 [Moles/Vol] 21.9 mmol/L Normal 21.0-32.0 [facility] Comment on above: Performed By: #### L ACT #### [facility] [address] [address] [address] Yue Paez Creatinine [Mass/Vol] 0.88 mg/dL Normal 0.70-1.30 [facility] Comment on above: Performed By: #### L ACT #### [facility] [address] [place] [address] Dr. Yue Paez EGFR-AF PALAUAN >60 Normal >=60 [facility] Comment on above: Performed By: #### L ACT #### [facility] [address] [address] [address] Yue Paez EGFR-NON AF PALAUAN >60 Normal >=60 [facility] Comment on above: Performed By: #### L ACT #### [facility] [address] [address] [address] Yue Paez Globulin (S) [Mass/Vol] 2.5 g/dL Normal [facility] Comment on above: Performed By: #### L ACT #### [facility] [address] [address] [address] Yue Paez Glucose [Mass/Vol] 126 mg/dL Critically high 74-106 [facility] Comment on above: Performed By: #### L ACT #### [facility] [address] [address] [address] Yue Paez Potassium [Moles/Vol] 4.3 mmol/L Normal 3.5-5.1 [facility] Comment on above: Performed By: #### L ACT #### [facility] [address] [address] [address] Yue Paez Protein [Mass/Vol] 5.8 g/dL Critically low 6.4-8.2 [facility] Comment on above: Performed By: #### L ACT #### [facility] [address] [place] [address] Dr. Yue Paez Sodium [Moles/Vol] 142 mmol/L Normal 136-145 [facility] Comment on above: Performed By: #### L ACT #### [facility] [address] [place] [address] Dr. Yue Paez Urea nitrogen [Mass/Vol] 24.0 mg/dL Critically high 7.0-18.0 [facility] Comment on above: Performed By: #### L ACT #### [facility] [address] [place] [address] Dr. Yue Paez Urea nitrogen/Creatinine [Mass ratio] 27.3 mg/mg Normal [facility] Comment on above: Performed By: #### L ACT #### [facility] [address] [place] [address] Dr. Yue Paez TYPE AND SCREENon 10-21-2022 TYPE AND SCREEN Negative Normal [facility] Comment on above: Performed By: #### H GBHCT #### [facility] [address] [place] [address] Dr. Yue Paez CBC AUTO DIFFon 10-20-2022 BASO # 0.0 103/ul Normal 0.0-0.1 [facility] Comment on above: Performed By: #### H GBHCT #### [facility] [address] [place] [address] Dr. Yue Paez Basophils/100 WBC (Bld) 0.1 % Critically low 0.2-2.0 [facility] Comment on above: Performed By: #### H GBHCT #### [facility] [address] [place] [address] Dr. Yue Paez EO # 0.0 103/ul Normal 0.0-0.7 [facility] Comment on above: Performed By: #### H GBHCT #### [facility] [address] [place] [address] Dr. Yue Paez Eosinophils/100 WBC (Bld) 0.0 % Critically low 0.9-7.0 [facility] Comment on above: Performed By: #### H GBHCT #### [facility] [address] [place] [address] Dr. Yue Paez Erythrocyte distribution width (RBC) [Ratio] 13.4 % Normal 11.0-15.0 [facility] Comment on above: Performed By: #### H GBHCT #### [facility] [address] [place] [address] Dr. Yue Paez Hematocrit (Bld) [Volume fraction] 33.7 % Critically low 42.0-54.0 [facility] Comment on above: Performed By: #### H GBHCT #### [facility] [address] [place] [address] Dr. Yue Paez Hemoglobin (Bld) [Mass/Vol] 11.3 g/dL Critically low 14.0-18.0 [facility] Comment on above: Performed By: #### H GBHCT #### [facility] [address] [place] [address] Dr. Yue Paez IG # 0.09 10e3/ul Critically high 0.00-0.03 [facility] Comment on above: Performed By: #### H GBHCT #### [facility] [address] [place] [address] Dr. Yue Paez IG % 0.5 % Normal 0.0-0.5 [facility] Comment on above: Performed By: #### H GBHCT #### [facility] [address] [place] [address] Dr. Yue Paez LYMPH # 1.8 103/ul Normal 1.2-3.8 [facility] Comment on above: Performed By: #### H GBHCT #### [facility] [address] [place] [address] Dr. Yue Paez Lymphocytes/100 WBC (Bld) 9.0 % Critically low 20.5-60.0 [facility] Comment on above: Performed By: #### H GBHCT #### [facility] [address] [address] [address] Yue Paez MANUAL DIFF REQ NO Normal [facility] Comment on above: Performed By: #### H GBHCT #### [facility] [address] [address] [address] Yue Paez MCH (RBC) [Entitic mass] 31.6 pg Normal 25.9-34.0 [facility] Comment on above: Performed By: #### H GBHCT #### [facility] [address] [place] [address] Dr. Yue Paez MCHC (RBC) [Mass/Vol] 33.5 g/dL Normal 29.9-35.2 [facility] Comment on above: Performed By: #### H GBHCT #### [facility] [address] [place] [address] Dr. Yue Paez MCV (RBC) [Entitic vol] 94.1 fL Critically high 80.0-94.0 [facility] Comment on above: Performed By: #### H GBHCT #### [facility] [address] [place] [address] Dr. Yue Paez MONO # 1.8 103/ul Critically high 0.3-0.8 [facility] Comment on above: Performed By: #### H GBHCT #### [facility] [address] [place] [address] Dr. Yue Paez Monocytes/100 WBC (Bld) 9.0 % Normal 1.7-12.0 [facility] Comment on above: Performed By: #### H GBHCT #### [facility] [address] [place] [address] Dr. Yue Paez NEUT # 16.0 103/ul Critically high 1.4-6.5 [facility] Comment on above: Performed By: #### H GBHCT #### [facility] [address] [place] [address] Dr. Yue Paez Neutrophils/100 WBC (Bld) 81.4 % Critically high 43.0-75.0 [facility] Comment on above: Performed By: #### H GBHCT #### [facility] [address] [address] [address] Yue Paez Platelet mean volume (Bld) [Entitic vol] 10.3 fL Normal 9.5-13.5 [facility] Comment on above: Performed By: #### H GBHCT #### [facility] [address] [address] [address] Yue Paez PLT 277 103/ul Normal 150-450 [facility] Comment on above: Performed By: #### H GBHCT #### [facility] [address] [address] [address] Yue Paez RBC 3.58 106/ul Critically low 4.70-6.10 [facility] Comment on above: Performed By: #### H GBHCT #### [facility] [address] [address] [address] Yue Paez WBC 19.6 103/ul Critically high 4.0-11.0 [facility] Comment on above: Performed By: #### H GBHCT #### [facility] [address] [address] [address] Yue Paez LACTATE/LACTIC ACIDon 2022 Lactate [Moles/Vol] 3.7 mmol/L Critically high 0.4-2.0 [facility] Comment on above: Performed By: #### L ACT #### [facility] [address] [address] [address] Yue Paez PROF 14(COMP METB)on 023 Albumin [Mass/Vol] 3.9 g/dL Normal 3.4-5.0 [facility] Comment on above: Performed By: #### L ACT #### [facility] [address] [address] [address] Yue Paez Albumin/Globulin [Mass ratio] 1.4 {ratio} Normal [facility] Comment on above: Performed By: #### L ACT #### [facility] [address] [address] [address] Yue Paez ALP [Catalytic activity/Vol] 59 U/L Normal 46-116 [facility] Comment on above: Performed By: #### L ACT #### [facility] [address] [address] [address] Yue Paez ALT [Catalytic activity/Vol] 30 U/L Normal 16-63 [facility] Comment on above: Performed By: #### L ACT #### [facility] [address] [address] [address] Yue Paez Anion gap [Moles/Vol] 15.2 mmol/L Normal [facility] Comment on above: Performed By: #### L ACT #### [facility] [address] [address] [address] Yue Paez AST [Catalytic activity/Vol] 13 U/L Critically low 15-37 [facility] Comment on above: Performed By: #### L ACT #### [facility] [address] [address] [address] Yue Paez Bilirubin [Mass/Vol] 0.3 mg/dL Normal 0.2-1.0 [facility] Comment on above: Performed By: #### L ACT #### [facility] [address] [address] [address] Yue Paez Calcium [Mass/Vol] 9.2 mg/dL Normal 8.5-10.1 [facility] Comment on above: Performed By: #### L ACT #### [facility] [address] [address] [address] Yue Paez Chloride [Moles/Vol] 106 mmol/L Normal 98-107 [facility] Comment on above: Performed By: #### L ACT #### [facility] [address] [address] [address] Yue Paez CO2 [Moles/Vol] 21.8 mmol/L Normal 21.0-32.0 [facility] Comment on above: Performed By: #### L ACT #### [facility] [address] [address] [address] Yue Paez Creatinine [Mass/Vol] 1.27 mg/dL Normal 0.70-1.30 [facility] Comment on above: Performed By: #### L ACT #### [facility] [address] [address] [address] Yue Paez EGFR-AF PALAUAN >60 Normal >=60 [facility] Comment on above: Performed By: #### L ACT #### [facility] [address] [address] [address] Yue Paez EGFR-NON AF PALAUAN 55 mL/min/1.73m2 Critically low >=60 [facility] Comment on above: Performed By: #### L ACT #### [facility] [address] [address] [address] Yue Paez Globulin (S) [Mass/Vol] 2.8 g/dL Normal [facility] Comment on above: Performed By: #### L ACT #### [facility] [address] [address] [address] Yue Paez Glucose [Mass/Vol] 161 mg/dL Critically high 74-106 [facility] Comment on above: Performed By: #### L ACT #### [facility] [address] [address] [address] Yue Paez Potassium [Moles/Vol] 4.0 mmol/L Normal 3.5-5.1 [facility] Comment on above: Performed By: #### L ACT #### [facility] [address] [address] [address] Yue Paez Protein [Mass/Vol] 6.7 g/dL Normal 6.4-8.2 [facility] Comment on above: Performed By: #### L ACT #### [facility] [address] [address] [address] Yue Paez Sodium [Moles/Vol] 139 mmol/L Normal 136-145 [facility] Comment on above: Performed By: #### L ACT #### [facility] [address] [address] [address] Yue Paez Urea nitrogen [Mass/Vol] 26.0 mg/dL Critically high 7.0-18.0 [facility] Comment on above: Performed By: #### L ACT #### [facility] [address] [place] [address] Dr. Yue Paez Urea nitrogen/Creatinine [Mass ratio] 20.5 mg/mg Normal [facility] Comment on above: Performed By: #### L ACT #### [facility] [address] [place] [address] Dr. Yue Paez PROTIMEon 10-20-2022 INR Coag (PPP) [Relative time] 0.99 {INR} Normal [facility] Comment on above: Performed By: #### H GBHCT #### [facility] [address] [place] [address] Dr. Yue Paez INR GUIDELINES SEE BELOW Normal [facility] Comment on above: Result Comment: AL RED INR: 2.0 - 3.0 CONDITIONS NOT LISTED BELOW 2.5 - 3.5 FOR PROSTHETIC HEART VALVE REPLACEMENT 2.5 - 3.5 RECURRENT THROMBOSIS Performed By: #### H GBHCT #### [facility] [address] [place] [address] Dr. Yue Paez PT Coag (PPP) [Time] 10.5 s Normal 9.0-11.6 [facility] Comment on above: Performed By: #### H GBHCT #### [facility] [address] [place] [address] Dr. Yue Paez PTTon 10-20-2022 aPTT Coag (Bld) [Time] 23.2 s Normal 22.3-36.2 [facility] Comment on above: Performed By: #### H GBHCT #### [facility] [address] [place] [address] Dr. Yue Paez Creatinine (Bld) [Mass/Vol]O rdered By: Dev Mckenzie on 04-22-2022 Creatinine [Mass/Vol] 1.0 mg/dL 0.6-1.3 [facility] Comment on above: ER/ESD physician is notified/shown all ISTAT results. Critical values may be confirmed by laboratory testing if deemed necessary by ER attending doctor. No Panel InformationOrdered By: Dev Mckenzie on 04-22-2022 POC Estimated GFR > 60 [facility] Comment on above: GFR estimated refere nce range: According to KDOQI guidelines, <60 ml/min/1.73m2 is sufficient to diagnose a patient with chronic kidney disease. POC Estimated GFR Non- Amer > 60 [facility] XR knee RT 2Von 06-29-2021 XR knee RT 2V [facility] [employer] Other XR knee RT 2V [facility] [employer] Other XR knee RT 2V [address] [place] [address] [employer] Other XR knee [place] 2[place] [address] [facility] [employer] Other XR knee RT 2V XRay Report [employer] [facility] [employer] Other XR knee RT 2V Signed [employer] Other XR knee RT 2V Patient: Lyudmila Becerril MR#: [id number] [employer] Other XR knee RT 2V [id number] [employer] Other XR knee RT 2V : 1945 Acct:[id number] [employer] Other XR knee RT 2V Age/Sex: 76 / M ADM Date: 06/29/21 [employer] Other XR knee RT 2V Loc: [facility] Room: Type: [facility] [employer] Other XR knee RT 2V Attending Dr: Misha Kyle MD [employer] Other XR knee RT 2V Ordering Provider: Misha Kyle MD [employer] Other XR knee RT 2V Date of Service: 06/29/21 [employer] Other XR knee RT 2V XR/XR hip RT min 2V(w/wo pelvis)*: Right hip pain [employer] Other XR knee RT 2V ([id number]) XR/XR knee RT 2V: Primary osteoarthritis of right knee [employer] Other XR knee RT 2V Copies to: Misha Kyle MD [employer] Other XR knee RT 2V CLINICAL HISTORY: Right lateral hip pain without injury. Prior history of right knee replacement. [employer] Other XR knee RT 2V Locking while climbing stairs. [employer] Other XR knee RT 2V RIGHT HIP - 2 views: N [employer] Other XR knee RT 2V COMPARISON: Right femur 06/19/2019 [employer] Other XR knee RT 2V AP view of the lower pelvis and frog-lateral view of the right hip were obtained. There is no [employer] Other XR knee RT 2V evidence of fracture or dislocation. The hip joint spaces are symmetric. No significant degenera [employer] Other XR knee RT 2V tive changes noted. There are no significant soft tissue abnormalities. [employer] Other XR knee RT 2V XR/XR hip RT min 2V(w/wo pelvis)* [employer] Other XR knee RT 2V IMPRESSION: [employer] Other XR knee RT 2V NO ACUTE BONY FINDINGS. [employer] Other XR knee RT 2V RIGHT KNEE - 2 views N [employer] Other XR knee RT 2V COMPARISON: 06/19/2019 [employer] Other XR knee RT 2V Standing AP and lateral views were obtained. There is a knee prosthesis which was not present at [employer] Other XR knee RT 2V the time of the comparison. The hardware appears intact and in appropriate position. No acute [employer] Other XR knee RT 2V fracture or dislocation is noted. There is no significant knee effusion or soft tissue swelling. [employer] Other XR knee RT 2V SATISFACTORY APPEARANCE OF KNEE REPLACEMENT. [employer] Other XR knee RT 2V Impression dictated by: Evelyn Nava M.D.06/29/2021 10:21 AM [employer] Other XR knee RT 2V Dictation Location: [facility]- [employer] Other XR knee RT 2V Transcribed By: [facility] 06/29/21 102 [employer] Other XR knee RT 2V Dictated By: Evelyn Nava MD 06/29/21 [facility] [employer] Other XR knee RT 2V Signed By: [employer] Other XR knee RT 2V 06/29/21 [facility] [employer] Other Vital Signs Date Time Vital Sign Value Performing Clinician Facility 08-29-2023 08:30-0500 Body height 157.48 cm Ananya Rodriguez Other [employer] Other 08-29-2023 08:30-0500 Body mass index (BMI) [Ratio] 28.9 kg/m2 Ananya Rodriguez Other [employer] Other 08-29-2023 08:30-0500 Body weight 71.67 kg Ananya Rodriguez Other [employer] Other 08-29-2023 08:30-0500 Diastolic blood pressure 63 mm[Hg] Ananya Rodriguez Other [employer] Other 08-29-2023 08:30-0500 Systolic blood pressure 94 mm[Hg] Ananya Rodriguez Other [employer] Other 05-02-2023 13:00-0400 Body height 157.48 cm Ananya Rodriguez Other [employer] Other 05-02-2023 13:00-0400 Body mass index (BMI) [Ratio] 27.4 kg/m2 Ananya Rodriguez Other [employer] Other 05-02-2023 13:00-0400 Body temperature 98.3 [degF] Ananya Rodriguez Other [employer] Other 05-02-2023 13:00-0400 Body weight 67.95 kg Ananya Rodriguez Other [employer] Other 05-02-2023 13:00-0400 Diastolic blood pressure 72 mm[Hg] Ananya Rodriguze Other [employer] Other 05-02-2023 13:00-0400 Systolic blood pressure 146 mm[Hg] Ananya Rodriguez Other [employer] Other 04-13-2023 14:45-0400 Body height 157.48 cm Ananya Rodriguez Other [employer] Other 04-13-2023 14:45-0400 Body mass index (BMI) [Ratio] 27.34 kg/m2 Ananya Rodriguez Other [employer] Other 04-13-2023 14:45-0400 Body temperature 97.8 [degF] Ananya Rodriguez Other [employer] Other 04-13-2023 14:45-0400 Body weight 67.81 kg Ananya Rodriguez Other [employer] Other 04-13-2023 14:45-0400 Diastolic blood pressure 73 mm[Hg] Ananya Rodriguez Other [employer] Other 04-13-2023 14:45-0400 Systolic blood pressure 128 mm[Hg] Ananya Rodriguez Other [facility] [employer] Other 01-06-2023 08:30-0400 Blood Pressure Location Dev MCKENZIE [facility] 01-06-2023 08:30-0400 Diastolic blood pressure 84 mm[Hg] Dev MCKENZIE [facility] 01-06-2023 08:30-0400 Heart rate 75 /min Dev MCKENZIE [facility] 01-06-2023 08:30-0400 Respiratory rate 16 /min Dev MCKENZIE [facility] 01-06-2023 08:30-0400 Systolic blood pressure 127 mm[Hg] Dev MCKENZIE [facility] 12-14-2022 09:30-0400 Body height 157.48 cm Sylvia Enriquez Other [employer] [facility] [employer] Other 12-06-2022 08:23-0400 Diastolic blood pressure 84 mm[Hg] MD Ananya Rodriguez Work Phone: [facility] 12-06-2022 08:23-0400 Heart rate 76 /min MD Ananya Rodriguez Work Phone: [facility] 12-06-2022 08:23-0400 Respiratory rate 16 /min MD Ananya Rodriguez Work Phone: [facility] 12-06-2022 08:23-0400 SaO2% (BldA) [Mass fraction] 99 % MD Ananya Rodriguez Work Phone: [facility] 12-06-2022 08:23-0400 Systolic blood pressure 153 mm[Hg] MD Ananya Rodriguez Work Phone: [facility] 12-06-2022 06:58-0400 Body height 162.56 cm MD Ananya Rodriguez Work Phone: [facility] 12-06-2022 06:58-0400 Body weight 68.03 kg MD Ananya Rodriguez Work Phone: [facility] 10-28-2022 12:00-0400 Body height 157.48 cm Feng Scrodri Other [facility] [employer] Other 10-28-2022 12:00-0400 Body mass index (BMI) [Ratio] 26.34 kg/m2 Feng Scovanner Other [employer] Other 10-28-2022 12:00-0400 Body weight 65.32 kg Feng Scovanner Other [employer] Other 10-28-2022 12:00-0400 Diastolic blood pressure 68 mm[Hg] Feng Scovanner Other [employer] Other 10-28-2022 12:00-0400 Systolic blood pressure 115 mm[Hg] Feng Scovanner Other [employer] Other 10-24-2022 15:00-0400 Body height 157.48 cm Ananya Rodriguez Other [employer] Other 10-24-2022 15:00-0400 Body mass index (BMI) [Ratio] 27.43 kg/m2 Ananya Rodriguez Other [employer] Other 10-24-2022 15:00-0400 Body weight 68.04 kg Ananya Rodriguez Other [employer] Other 10-24-2022 15:00-0400 Diastolic blood pressure 62 mm[Hg] Ananya Rodriguez Other [facility] [employer] Other 10-24-2022 15:00-0400 SaO2% (BldA) [Mass fraction] 97 % Ananya Rodriguez Other [facility] [employer] Other 10-24-2022 15:00-0400 Systolic blood pressure 106 mm[Hg] Ananya Rodriguez Other [facility] [employer] Other 10-12-2022 10:15-0500 Diastolic blood pressure 74 mm[Hg] MD Ananya Rodriguez Work Phone: [facility] 10-12-2022 10:15-0500 Heart rate 74 /min MD Ananya Rodriguez Work Phone: [facility] 10-12-2022 10:15-0500 Respiratory rate 16 /min MD Ananya Rodriguez Work Phone: [facility] 10-12-2022 10:15-0500 SaO2% (BldA) [Mass fraction] 98 % MD Ananya Rodriguez Work Phone: [facility] 10-12-2022 10:15-0500 Systolic blood pressure 101 mm[Hg] MD Ananya Rodriguez Work Phone: [facility] 10-12-2022 08:04-0500 Body height 162.56 cm MD Ananya Rodriguez Work Phone: [facility] 10-12-2022 08:04-0500 Body temperature 98 [degF] MD Ananya Rodriguez Work Phone: [facility] 10-12-2022 08:04-0500 Body weight 67.58 kg MD Ananya Rodriguez Work Phone: [facility] 09-07-2022 10:00-0500 Body height 160.02 cm Sylvia Enriquez Other [facility] [employer] Other 09-07-2022 10:00-0500 Body mass index (BMI) [Ratio] 26.96 kg/m2 Sylvia Bisiish Other [employer] Other 09-07-2022 10:00-0500 Body weight 69.04 kg Sylvia Enriquez Other [employer] Other 08-30-2022 15:20-0500 Body height 160.02 cm Anthony Rodriguez Other [employer] Other 08-30-2022 15:20-0500 Body mass index (BMI) [Ratio] 26.62 kg/m2 Anthony Rodriguez Other [employer] Other 08-30-2022 15:20-0500 Body weight 68.18 kg Anthony Rodriguez Other [employer] Other 08-30-2022 15:20-0500 Diastolic blood pressure 72 mm[Hg] Anthony Rodriguez Other [employer] Other 08-30-2022 15:20-0500 Systolic blood pressure 132 mm[Hg] Anthony Rodriguez Other [employer] Other 04-22-2022 07:24-0400 Body height 157.48 cm MD Ananya Rodriguez Work Phone: [facility] 04-22-2022 07:24-0400 Body weight 71.66 kg MD Ananya Rodriguez Work Phone: [facility] 03-21-2022 12:07-0400 Blood Pressure Location Dev MCKENZIE [facility] 03-21-2022 12:07-0400 Diastolic blood pressure 67 mm[Hg] Dev MCKENZIE [facility] 03-21-2022 12:07-0400 Heart rate 76 /min Dev MCKENZIE [facility] 03-21-2022 12:07-0400 Respiratory rate 18 /min Dev MCKENZIE [facility] 03-21-2022 12:07-0400 Systolic blood pressure 130 mm[Hg] Dev MCKENZIE [facility] 11-24-2021 15:45-0400 Body height 160.02 cm Asad Martínez Other [employer] Other 11-24-2021 15:45-0400 Body mass index (BMI) [Ratio] 26.92 kg/m2 Asad Martínez Other [employer] Other 11-24-2021 15:45-0400 Body weight 68.95 kg Asad Martínez Other [employer] Other 08-11-2021 09:30-0500 Body height 160.02 cm Merna Zee Other [employer] Other 08-11-2021 09:30-0500 Body mass index (BMI) [Ratio] 26.75 kg/m2 Merna Zee Other [employer] Other 08-11-2021 09:30-0500 Body weight 68.49 kg Merna Zee Other [employer] Other 06-29-2021 09:45-0500 Body height 160.02 cm Misha Kyle Other [employer] Other 06-29-2021 09:45-0500 Body mass index (BMI) [Ratio] 26.92 kg/m2 Misha Kyle Other [employer] Other 06-29-2021 09:45-0500 Body weight 68.95 kg Misha Kyle Other [employer] Other Encounters Encounter Date Encounter Type Care Provider Facility Start: 02-19-2024 ambulatory Dev Jones ty:[facility] Start: 12-26-2023 End: 12-26-2023 ambulatory Ananya Rodriguez Facility:[facility] Start: 12-26-2023 End: 12-26-2023 ambulatory MD Ananya Rodriguez Work Phone: [facility] Work Phone: Start: 12-26-2023 End: 12-26-2023 Patient encounter procedure MD Ananya Rodriguez Work Phone: [facility] Work Phone: Start: 12-23-2023 Non-patient / Non-visit MD Ananya Rodriguez Work Phone: [facility] [employer] Work Phone: Start: 11-24-2023 End: 11-24-2023 ambulatory [facility] Start: 08-29-2023 End: 08-29-2023 ambulatory Ananya Rodriguez Other [facility] [employer] Other Start: 08-29-2023 Office outpatient visit 15 minutes Ananya COOPER [facility] Start: 05-15-2023 End: 05-15-2023 ambulatory [facility] Start: 05-02-2023 End: 05-02-2023 ambulatory Ananya Rodriguez Other [employer] Other Start: 05-02-2023 Office outpatient visit 15 minutes Ananya Rodriguez [facility] Start: 05-02-2023 Telephone encounter Ananya Rodriguez [facility] Start: 04-13-2023 End: 04-13-2023 ambulatory Ananya Rodriguez Other [employer] Other Start: 04-13-2023 Office outpatient visit 15 minutes Ananya Rodriguez [facility] Start: 04-13-2023 Telephone encounter Ananya Rodriguez [facility] Start: 03-31-2023 ambulatory Dev MCKENZIE Facili [place]:[facility] [place] Start: 01-31-2023 End: 01-31-2023 Patient encounter procedure Dev MCKENZIE [facility] Start: 01-31-2023 End: 01-31-2023 ambulatory Dev MCKENZIE Facility:[facility] Start: 01-19-2023 End: 01-19-2023 ambulatory Sylvia Enriquez Other [employer] Other Start: 01-19-2023 Telephone encounter Sylvia Enriquez [facility] [place] Start: 01-06-2023 End: 01-06-2023 Patient encounter procedure Dev MCKENZIE [facility] Start: 01-05-2023 End: 01-05-2023 ambulatory Sylvia Enriquez Other [employer] Other Start: 01-05-2023 Office outpatient visit 15 minutes Sylvia Enriquez [facility] [place] Start: 12-14-2022 End: 12-14-2022 ambulatory Sylvia Enriquez Other [employer] Other Start: 12-14-2022 Office outpatient visit 25 minutes Sylvia Enriquez [facility] [place] Start: 12-06-2022 End: 12-06-2022 Admission to same day surgery center MD Ananya Rodriguez Work Phone: [facility] Work Phone: Start: 12-06-2022 End: 12-06-2022 ambulatory MD Ananya Rodriguez Work Phone: [facility] Work Phone: Start: 11-29-2022 Telephone encounter Ananya Rodriguez [facility] Start: 11-29-2022 End: 11-30-[address] ANANYA RODRIGUEZ [facility] [employer] Other Start: 11-28-2022 Telephone encounter Ananya Rodriguez [facility] Start: 11-28-2022 End: 11-29-[address] ANANYA RODRIGUEZ [facility] [employer] Other Start: 10-28-2022 End: 10-28-2022 ambulatory Feng Marie Other [employer] Other Start: 10-28-2022 Office outpatient visit 15 minutes Feng Marie [facility] Start: 10-27-2022 Telephone encounter Ananya Rodriguez [facility] Start: 10-27-2022 End: 10-28-[address] ANANYA RODRIGUEZ [facility] [employer] Other Start: 10-24-2022 End: 10-24-2022 ambulatory Ananya Rodriguez Other [employer] Other Start: 10-24-2022 Telephone encounter Ananya Rodriguez [facility] Start: 10-24-2022 Transitional care manage srvc 14 day discharge Ananya Rodriguez [facility] Start: 10-21-2022 End: 10-22-2022 Evaluation and management of inpatient JARED OTIS . Facility: Start: 10-19-2022 End: 10-19-2022 ambulatory Sylvia Enriquez Other [employer] Other Start: 10-19-2022 Office outpatient visit 15 minutes Sylvia Enriquez [facility] Start: 10-12-2022 End: 10-12-2022 Admission to same day surgery center MD Ananya Rodriguez Work Phone: [facility] Work Phone: Start: 10-12-2022 End: 10-12-2022 ambulatory MD Ananya Rodriguez Work Phone: [facility] Work Phone: Start: 09-14-2022 End: 09-14-2022 ambulatory Merna Zee Other [employer] Other Start: 09-14-2022 Office outpatient visit 15 minutes Merna Zee [facility] [place] [facility] Start: 09-13-2022 End: 11-02-2022 ambulatory SYLVIA ENRIQUEZ Facility: Start: 09-07-2022 End: 09-07-2022 ambulatory Sylvia Enriquez Other [employer] Other Start: 09-07-2022 Office outpatient ne w 45 minutes Sylvia Enriquez [facility] Start: 08-31-2022 End: 08-31-2022 ambulatory Anthony Rodriguez Other [employer] Other Start: 08-31-2022 Telephone encounter Anthony Rodriguez [facility] Start: 08-30-2022 End: 08-30-2022 ambulatory Anthony Rodriguez Other [employer] Other Start: 08-30-2022 Office outpatient ne w 30 minutes Anthony Rodriguez [facility] Start: 08-22-2022 End: 08-22-2022 ambulatory Rishabh Draper Other [employer] Other Start: 08-22-2022 Telephone encounter Rishabh ZULETA [facility] Start: 07-20-2022 End: 07-20-2022 ambulatory Merna Zee Other [employer] Other Start: 07-20-2022 Office outpatient visit 15 minutes Merna Calvey [facility] Start: 04-26-2022 End: 04-26-2022 ambulatory Merna Calvey Other [employer] Other Start: 04-26-2022 Office outpatient visit 15 minutes Merna Calvey [facility] Start: 04-22-2022 End: 04-22-2022 Patient encounter procedure MD Ananya Rodriguez Work Phone: [facility] [place] Start: 03-21-2022 End: 03-21-2022 Patient encounter procedure Dev MCKENZIE [facility] Start: 2022 End: 2022 ambulatory Merna Calvey Other [employer] Other Start: 2022 Office outpatient visit 15 minutes Merna Calvey [facility] [place] [facility] Start: 12-30-2021 End: 12-31-[address] DEV MCKENZIE . Facility: Start: 11-24-2021 End: 11-24-2021 ambulatory [facility] Other [employer] Other Start: 11-24-2021 Office outpatient ne w 30 minutes [facility] Start: 09-07-2021 End: 09-07-2021 ambulatory Merna Yayo Other [employer] Other Start: 09-07-2021 Postop follow up vis it related to original px Merna Calvey [facility] Start: 09-03-2021 End: 09-03-2021 ambulatory Merna Calvey Other [employer] Other Start: 09-03-2021 Postop follow up vis it related to original px Merna Calvey [facility] Start: 08-11-2021 End: 08-11-2021 ambulatory Merna Zee Other [employer] Other Start: 08-11-2021 Office outpatient visit 25 minutes Merna Zee [facility] [place] [facility] Start: 06-29-2021 End: 06-29-2021 ambulatory Misha Kyle Other [employer] Other Start: 06-29-2021 Office outpatient visit 15 minutes Misha Kyle [facility] [place] [facility] Start: 06-23-2021 End: 06-23-2021 ambulatory Merna Zee Other [employer] Other Start: 06-23-2021 Office outpatient visit 15 minutes Merna Zee [facility] [place] [facility] Procedures Date Procedure Procedure Detail Performing Clinician Start: 12-26-2023 Plain X-ray of left tibia and left fibula MD Ananya Rodriguez Work Phone: Start: 12-26-2023 X-ray of left knee MD Imani Rodriguez Work Phone: Start: 12-06-2022 Local anesthetic lum bar facet joint nerve block MD Ananya Rodriguez Work Phone: Start: 10-12-2022 Colonoscopy MD Ananya Rodriguez Work Phone: Start: 04-22-2022 MR prostate wo/w con MD Ananya Rodriguez Work Phone: Start: 12-30-[address] ANANYA RODRIGUEZ Comment on above: Performed By: #### H GBHCT #### [facility] [address] [place] [address] Dr. Yue Paez Start: 12-13-2012 Revision of transure thral prostatectomy Dev MCKENZIE Start: 11-05-2012 Cystoscopy Dev GRAF Start: 09-26-2006 Ultrasonography guid ed transrectal cryoablation of prostate Dev MCKENZIE Start: 12-01-2005 Fluoroscopy guided extracorporeal shockwave lithotripsy of calculus of left kidney Dev MCKENZIE Start: 09-22-2005 Fluoroscopy guided extracorporeal shockwave lithotripsy of calculus of right kidney Dev MCKENZIE Start: 09-06-2005 ILC prostate Dev GRAF Start: 07-18-2005 Cystoscopy Dev GRAF Arthroplasty of knee Dev MCKENZIE Colonoscopy Dev MCKENZIE Fluoroscopy guided extracorporeal shockwave lithotripsy of calculus of left kidney Dev MCKENZIE History of operative procedure on knee Merna Zee Other Ophthalmic surgery (qualifier value) Dev MCKENZIE Procedure on nose Dev GRAF Procedure on wrist Dev Baumann ATEHELEN T & A soft diet (finding) Pa keila MCKENZIE Plan of Treatment Date Care Activity Detail Author Start: 12-26-2023 Plain X-ray of left tibia and left fibula XR tibia fibula LT 2V* [facility] Start: 12-26-2023 XR Tibia and Fibula - left 2 Views [facility] Start: 12-26-2023 X-ray of left knee XR knee LT 2V [facility] Start: 12-26-2023 XR Knee - left 2 Views [facility] Start: 12-06-2022 [facility] Start: 10-12-2022 [facility] Patient Education [facility] Work Phone: Patient referral [facility] Work Phone: Immunizations Immunization Date Immunization Notes Care Provider Fa [facility] 05-19-2022 COVID-19 mRNA Bivale nt Booster (Pfizer) MD Ananya Rodriguez Work Phone: [facility] 11-29-2021 COVID-19 mRNA Bivale nt Booster (Pfizer) MD Ananya Rodriguez Work Phone: [facility] 11-05-2021 SARS-CoV-2 mRNA (tozinameran 6m-4y) vaccine Dev MCKENZIE [facility] 05-09-2021 COVID-19 Vaccine Pfi zer - Documentation Purposes Only Merna Zee Other [facility] 05-07-2021 SARS-CoV-2 mRNA (tozinameran 6m-4y) vaccine Dev MCKENZIE [facility] 04-02-2021 influenza virus vaccine, split virus (incl. purified surface antigen) Ananya Rodriguez Other [employer] Other 04-02-2021 influenza virus vaccine, unspecified formulation MD Ananya Rodriguez Work Phone: [facility] 09-30-2020 COVID-19 Vaccine Pfi zer - Documentation Purposes Only Merna Zee Other [employer] Other 09-09-2020 COVID-19 Vaccine Pfi zer - Documentation Purposes Only Merna Zee Other [employer] Other 09-07-2020 SARS-CoV-2 mRNA (tozinameran 6m-4y) vaccine Dev MCKENZIE [facility] Payers Date Payer Category Payer Self-pay [id number] 1957 Medicare [id number] 2. [id number] 1945 Unknown [id number] 2.16.84 [id number] 1945 Unknown [id number] 2.16.84 [id number] 1945 Unknown [id number] 2.16.84 [id number] 1945 Unknown [id number] 2.16.84 [id number] 1945 Unknown [id number] 2.16.84 [id number] 1945 Unknown [id number] 2.16.84 [id number] 1945 Unknown [id number] 2.16.8 [id number] 1945 Unknown [id number] 2.16.8 [id number] 1945 Unknown [id number] 2.16.8 [id number] Medicare [id number] 2.16.8 [id number] Medicare [id number] Unknown [id number] Unknown [id number] 2.16.8 [id number] Social History Date Type Detail Facility Unknown if ever smoked [employer] Other Sex Assigned At [employer] Other Start: 03-21-2022 Tobacco smoking status Never s moked tobacco (finding) [facility] Start: 08-26-2021 End: 12-06-2022 Tobacco smoking status NHIS Ex-smoker (finding) [facility] Start: 1945 Sex Assigned At Male [facility] Procedure Code Equipment Code Equipment Origin al Text Equipment Identifier Dates Trapeziectomy Tendon/ligament bone anchor, non-bioabsorbable ()[id number] Start: 08-26-2021 Arthroplasty, knee, total, minimally invasive ART SURF LT 14MM C-D 6-9 VE FDA Start: 04-18-2018 Arthroplasty, knee, total, minimally invasive CEMENT PALACOS R 1X40 SINGLE FDA Start: 04-18-2018 Arthroplasty, knee, total, minimally invasive CEMENT PALACOS R 1X40 SINGLE FDA Start: 04-18-2018 Arthroplasty, knee, total, minimally invasive FEMUR PERSONA LEFT SIZE 6 FDA Start: 04-18-2018 Arthroplasty, knee, total, minimally invasive KNEE TOTAL LEVEL 1G PERSONA FDA Start: 04-18-2018 Arthroplasty, knee, total, minimally invasive PATELLA PERSONA 32MM FDA Start: 04-18-2018 Arthroplasty, knee, total, minimally invasive TIBIA PERSONA LEFT SIZE D FDA Start: 04-18-2018 Arthroplasty, knee, total, minimally invasive Orthopaedic cement, non-medicated ()[id number] FDA Start: 07-01-2019 Arthroplasty, knee, total, minimally invasive Uncoated knee femur prosthesis ()[id number] FDA Start: 07-01-2019 Arthroplasty, knee, total, minimally invasive Tibial insert ()[id number] FDA Start: 07-01-2019 Arthroplasty, knee, total, minimally invasive Polyethylene patella prosthesis ()[id number] FDA Start: 07-01-2019 Arthroplasty, knee, total, minimally invasive Uncoated knee tibia prosthesis, metallic ()[id number] FDA Start: 07-01-2019 Arthroplasty, knee, total, minimally invasive ART SURF LT 14MM C-D 6-9 VE FDA Start: 04-18-2018 Arthroplasty, knee, total, minimally invasive CEMENT PALACOS R 1X40 SINGLE FDA Start: 04-18-2018 Arthroplasty, knee, total, minimally invasive CEMENT PALACOS R 1X40 SINGLE FDA Start: 04-18-2018 Arthroplasty, knee, total, minimally invasive FEMUR PERSONA LEFT SIZE 6 FDA Start: 04-18-2018 Arthroplasty, knee, total, minimally invasive KNEE TOTAL LEVEL 1G PERSONA FDA Start: 04-18-2018 Arthroplasty, knee, total, minimally invasive PATELLA PERSONA 32MM FDA Start: 04-18-2018 Arthroplasty, knee, total, minimally invasive TIBIA PERSONA LEFT SIZE D FDA Start: 04-18-2018 Arthroplasty, knee, total, minimally invasive ART SURF LT 14MM C-D 6-9 VE FDA Start: 04-18-2018 Arthroplasty, knee, total, minimally invasive CEMENT PALACOS R 1X40 SINGLE FDA Start: 04-18-2018 Arthroplasty, knee, total, minimally invasive CEMENT PALACOS R 1X40 SINGLE FDA Start: 04-18-2018 Arthroplasty, knee, total, minimally invasive FEMUR PERSONA LEFT SIZE 6 FDA Start: 04-18-2018 Arthroplasty, knee, total, minimally invasive KNEE TOTAL LEVEL 1G PERSONA FDA Start: 04-18-2018 Arthroplasty, knee, total, minimally invasive PATELLA PERSONA 32MM FDA Start: 04-18-2018 Arthroplasty, knee, total, minimally invasive TIBIA PERSONA LEFT SIZE D FDA Start: 04-18-2018 Arthroplasty, knee, total, minimally invasive ART SURF LT 14MM C-D 6-9 VE FDA Start: 04-18-2018 Arthroplasty, knee, total, minimally invasive CEMENT PALACOS R 1X40 SINGLE FDA Start: 04-18-2018 Arthroplasty, knee, total, minimally invasive CEMENT PALACOS R 1X40 SINGLE FDA Start: 04-18-2018 Arthroplasty, knee, total, minimally invasive FEMUR PERSONA LEFT SIZE 6 FDA Start: 04-18-2018 Arthroplasty, knee, total, minimally invasive KNEE TOTAL LEVEL 1G PERSONA FDA Start: 04-18-2018 Arthroplasty, knee, total, minimally invasive PATELLA PERSONA 32MM FDA Start: 04-18-2018 Arthroplasty, knee, total, minimally invasive TIBIA PERSONA LEFT SIZE D FDA Start: 04-18-2018 Arthroplasty, knee, total, minimally invasive ART SURF LT 14MM C-D 6-9 VE FDA Start: 04-18-2018 Arthroplasty, knee, total, minimally invasive CEMENT PALACOS R 1X40 SINGLE FDA Start: 04-18-2018 Arthroplasty, knee, total, minimally invasive CEMENT PALACOS R 1X40 SINGLE FDA Start: 04-18-2018 Arthroplasty, knee, total, minimally invasive FEMUR PERSONA LEFT SIZE 6 FDA Start: 04-18-2018 Arthroplasty, knee, total, minimally invasive KNEE TOTAL LEVEL 1G PERSONA FDA Start: 04-18-2018 Arthroplasty, knee, total, minimally invasive PATELLA PERSONA 32MM FDA Start: 04-18-2018 Arthroplasty, knee, total, minimally invasive TIBIA PERSONA LEFT SIZE D FDA Start: 04-18-2018 Goals Date Patient Goal Desired Activity /State Functional Status Date Assessment Result Facility 01-31-2023 Functional Status N/A [facility] 01-06-2023 Functional Status N/A [facility] 03-21-2022 Functional Status N/A [facility] Clinical Notes 06-23-2021 to 11-24-2023 Note Date & Type Note Facility 11-24-2023 Note [facility] Subjective Lyudmila Becerril is a 78 y.o. year old male seen for follow up. Patient Active Problem List Diagnosis Coronary atherosclerosis Chest pain Benign prostatic hyperplasia Hematuria High prostate specific antigen (PSA) Hyperlipidemia Hypertension Prostatitis Abnormal CT scan Abnormal liver function tests Acute bronchitis Bladder wall thickening Gastroesophageal reflux disease Gout Low back pain Migraine headache Pain in joint involving ankle and foot Plantar fascial fibromatosis Renal cyst Benign prostatic hyperplasia (BPH) with post-void dribbling Family History Problem Relation Name Age of Onset Coronary artery disease Father Social History Tobacco Use Smoking status: Former Types: Cigarettes Smokeless tobacco: Never Substance Use Topics Alcohol use: Yes Comment: occasional HPI Lyudmila is seen in follow-up. He is a 77-year-old man with prior history of hypertension and hyperlipidemia on treatment. He has nonobstructive coronary artery disease with 50% stenosis of the obtuse marginal branch of the circumflex by cardiac catheterization in 2006. On 10/22/2022 he was admitted to the [facility] with colitis and severe sepsis without shock and GI bleeding. He was treated with ciprofloxacin and Flagyl. CT scan was consistent with colitis. His symptoms improved. WBC count improved he was discharged on antibiotic therapy. Today he is seen in follow-up. He reports that he has been having shortness of breath on exertion NYHA class II symptoms. In addition he reports that about 1 to 2 weeks ago he felt chest pressure in the center of the chest with no radiation. This happened spontaneously, lasted about half hour and then disappeared. No recurrence since then. He has been taking medications as prescribed. No other symptoms. Review of Systems Cardiovascular: Positive for chest pain and dyspnea on exertion. Negative for irregular heartbeat, leg swelling, orthopnea, palpitations and syncope. Respiratory: Negative for cough and shortness of breath. Musculoskeletal: Negative for arthritis, falls and neck pain. Gastrointestinal: Negative for diarrhea and dysphagia. Neurological: Negative for light-headedness and loss of balance. Objective Visit Vitals BP 120/80 (BP Location: Left arm, Patient Position: Standing, BP Cuff Size: Adult) Pulse 70 Resp 11 Ht 1.626 m (5' 4 ) Wt 69 kg (152 lb 3.2 oz) SpO2 98% BMI 26.13 kg/m??? Smoking Status Former BSA 1.77 m??? Physical Exam Constitutional: Appearance: He is well-developed. He is not ill-appearing. HENT: Head: Normocephalic and atraumatic. Nose: Nose normal. Eyes: General: No scleral icterus. Pupils: Pupils are equal, round, and reactive to light. Neck: Thyroid: No thyromegaly. Vascular: No JVD. Cardiovascular: Rate and Rhythm: Normal rate and regular rhythm. Pulses: Radial pulses are 2+ on the right side and 2+ on the left side. Heart sounds: Normal heart sounds. No murmur heard. No friction rub. No gallop. Pulmonary: Effort: Pulmonary effort is normal. No respiratory distress. Breath sounds: Normal breath sounds. No wheezing or rales. Chest: Chest wall: No tenderness. Abdominal: General: Bowel sounds are normal. There is no distension. Palpations: Abdomen is soft. Tenderness: There is no abdominal tenderness. Musculoskeletal: General: No swelling. Cervical back: Neck supple. Skin: General: Skin is warm and dry. Neurological: General: No focal deficit present. Mental Status: He is alert and oriented to person, place, and time. Psychiatric: Mood and Affect: Mood normal. Behavior: Behavior is cooperative. Judgment: Judgment normal. Allergies Allergies Allergen Reactions Atorvastatin Other Medications Current Outpatient Medications: aspirin 81 mg EC tablet, Take 1 tablet by mouth in the morning., Disp: , Rfl: diclofenac (Voltaren) 75 mg EC tablet, TAKE 1 TABLET BY MOUTH TWICE A DAY NEEDED FOR 30 DAYS, Disp: , Rfl: losartan (Cozaar) 25 mg tablet, Take 1 tablet (25 mg) by mouth in the morning., Disp: 90 tablet, Rfl: 3 metoprolol succinate XL (Toprol-XL) 25 mg 24 hr tablet, Take 1 tablet by mouth 1 (one) time each day., Disp: , Rfl: omeprazole OTC (PriLOSEC OTC) 20 mg EC tablet, Take 1 tablet by mouth 1 (one) time each day., Disp: , Rfl: potassium citrate CR (Urocit-K-10) 10 mEq ER tablet, Take 10 mEq by mouth with breakfast and with evening meal., Disp: , Rfl: rosuvastatin (Crestor) 20 mg tablet, Take 10 mg by mouth at bedtime., Disp: , Rfl: ezetimibe (Zetia) 10 mg tablet, Take 1 tablet (10 mg) by mouth in the morning., Disp: 90 tablet, Rfl: 3 Recent Labs Blood testing 05/15/2023: Hemoglobin 12.9, platelets 254, potassium 4.3, BUN 21, creatinine 0.93, EGFR more than 60, LFTs normal, triglycerides 113, cholesterol 159, LDL 88, HDL 48. Blood testing 11/28/2022: (more content not included)... [facility] 08-29-2023 Evaluation note Encounter Date Diagnosis Assessment Notes Aug, Dermatitis (ICD-10 - L30.9) Recommended moisturizer creams and mild detergents. Aug, Essential hypertension (ICD-10 - I10) Blood pressure remains well controlled at this time. Denies cardiac symptoms. Shows no signs or symptoms or poor control. Patient to continue with above medication and we will continue to monitor. Advised to pay attention to body and symptoms. Any developing patterns. Stay well hydrated. [facility] Other 10-09-2023 Note[facility] Cardiology - [facility] Subjective Lyudmila Becerril is a 78 y.o. year old male patient with past medical history of non-obstructive CAD, hyperlipidemia and hypertension. Patient Active Problem List Diagnosis Coronary atherosclerosis Chest pain Benign prostatic hyperplasia Hematuria High prostate specific antigen (PSA) Hyperlipidemia Hypertension Prostatitis Abnormal CT scan Abnormal liver function tests Acute bronchitis Bladder wall thickening Gastroesophageal reflux disease Gout Low back pain Migraine headache Pain in joint involving ankle and foot Plantar fascial fibromatosis Renal cyst Benign prostatic hyperplasia (BPH) with post-void dribbling Family History Problem Relation Name Age of Onset Coronary artery disease Father Social History Tobacco Use Smoking status: Former Types: Cigarettes Smokeless tobacco: Never Substance Use Topics Alcohol use: Yes Comment: occasional HPI Lyudmila is seen in follow-up. He is a 77-year-old man with prior history of hypertension and hyperlipidemia on treatment. He has nonobstructive coronary artery disease with 50% stenosis of the obtuse marginal branch of the circumflex by cardiac catheterization in 2006. On 10/22/2022 he was admitted to the [facility] with colitis and severe sepsis without shock and GI bleeding. He was treated with ciprofloxacin and Flagyl. CT scan was consistent with colitis. His symptoms improved. WBC count improved he was discharged on antibiotic therapy. today he reports that he has no chest pain. He continues to feel tired and fatigued and has shortness of breath on exertion after his recent admission. He is planned to get follow-up blood testing with Dr. Rodriguez. 11/14/2022 He was admitted to [facility] last month for GI bleed. Was having some chest tightness but says that has subsided. Still gets SOB with exertion and is trying to gain his strength back. Update: 05/15/2023 Doing well, dealing with sinus issues and gout in the left big toe Doing well from a cardiac standpoint Reports resolution of dyspneic symptoms, denies chest pain or lower extremity edema Review of Systems Cardiovascular: Negative for chest pain, dyspnea on exertion, irregular heartbeat, leg swelling, near-syncope, orthopnea, palpitations, paroxysmal nocturnal dyspnea and syncope. Respiratory: Positive for cough. Neurological: Negative for light-headedness and weakness. Objective Visit Vitals BP 117/67 (BP Location: Left arm, Patient Position: Sitting) Pulse 80 Ht 1.626 m (5' 4 ) Wt 68 kg (150 lb) SpO2 99% BMI 25.75 kg/m??? Smoking Status Former BSA 1.75 m??? Physical Exam Constitutional: Appearance: He is well-developed. He is not ill-appearing. HENT: Head: Normocephalic and atraumatic. Nose: Nose normal. Eyes: General: No scleral icterus. Pupils: Pupils are equal, round, and reactive to light. Neck: Thyroid: No thyromegaly. Vascular: No JVD. Cardiovascular: Rate and Rhythm: Normal rate and regular rhythm. Pulses: Radial pulses are 2+ on the right side and 2+ on the left side. Heart sounds: Normal heart sounds. No murmur heard. No friction rub. No gallop. Pulmonary: Effort: Pulmonary effort is normal. No respiratory distress. Breath sounds: Normal breath sounds. No wheezing or rales. Chest: Chest wall: No tenderness. Abdominal: General: Bowel sounds are normal. There is no distension. Palpations: Abdomen is soft. Tenderness: There is no abdominal tenderness. Musculoskeletal: General: No swelling. Cervical back: Neck supple. Skin: General: Skin is warm and dry. Neurological: General: No focal deficit present. Mental Status: He is alert and oriented to person, place, and time. Psychiatric: Mood and Affect: Mood normal. Behavior: Behavior is cooperative. Judgment: Judgment normal. Allergies No Known Allergies Medications Current Outpatient Medications: aspirin 81 mg EC tablet, Take 1 tablet by mouth in the morning., Disp: , Rfl: diclofenac (Voltaren) 75 mg EC tablet, TAKE 1 TABLET BY MOUTH TWICE A DAY NEEDED FOR 30 DAYS, Disp: , Rfl: losartan (Cozaar) 25 mg tablet, Take 1 tablet (25 mg) by mouth in the morning., Disp: 90 tablet, Rfl: 3 metoprolol succinate XL (Toprol-XL) 25 mg 24 hr tablet, Take 1 tablet by mouth 1 (one) time each day., Disp: , Rfl: omeprazole OTC (PriLOSEC OTC) 20 mg EC tablet, Take 1 tablet by mouth 1 (one) time each day., Disp: , Rfl: potassium citrate CR (Urocit-K-10) 10 mEq ER tablet, Take 10 mEq by mouth with breakfast and with evening meal., Disp: , Rfl: rosuvastatin (Crestor) 20 mg tablet, Take 10 mg by mouth at bedtime., Disp: , Rfl: Recent Labs 11/28/2022 Sodium 141, potassium 4.3, chloride 105, BUN 19, Scr 1.16, eGFR >60% Blood testing 10/27/2022: Hemoglobin 9.5, platelets 374. Blood testing 10/22/2022: Hemoglobin 8.3, platelets 203, potassium 4.1, BUN 16, creatinin (more content not included)...[facility] 05-15-2023 NotePatient here for 6 mo follow up CAD and hypertension. He was switched from losartan/hydrochlorothiazide to just losartan 25mg daily at last visit in November [address] Gill. He denies chest pain, SOB, and lightheadedness. Doing very well. Review of Systems Respiratory: Positive for cough. Musculoskeletal: Positive for arthritis, back pain, gout, joint pain, neck pain and stiffness. All other systems reviewed and are negative.[facility] 05-02-2023 Evaluation note* Encounter Date Diagnosis Assessment Notes Treatment Notes Treatment Clinical Notes Apr, Bronchitis (ICD-10 - J40) Use inhaler at least twice for the next 2 days, and then as needed for wheezing. Cough may linger after viral or bacterial infections; sometimes for weeks. Patient advised to go to ER immediately if experiencing shortness of breath or difficulty breathing. Patient verbalized understanding and agreement with treatment plan. [facility] Other 09-07-2023 Evaluation note* Encounter Date Diagnosis Assessment Notes Treatment Notes Treatment Clinical Notes Apr, Bronchitis (ICD-10 - J40) Bronchitis: Care Instructions material was printed Pt is acutely sick with acute complicated bronchitis Recommend: completing antibiotic as prescribed [facility] Other 06-27-2023 Hospital Discharge instructions Patient Education 01/31/2023 09:22:59 [facility] - Cystoscopy Discharge Instructions (CUSTOM) Cystoscopy Voiding after the procedure: there may be some pain, burning, urgency, frequency and blood tinged urine following the procedure. These symptoms usually resolve within 2-5 days. Drink the amount of fluid it takes to keep the urine pink to yellow or clear in color. Drinking enough water and fluids will help to ease any discomfort after your procedure. If you are having problems that seem out of the ordinary, please call. If unable to contact your physician and you feel it is an emergency, go to the nearest emergency room or call 911 Diet you may resume your normal diet. Activity you may resume your normal activities Call if you have a fever over 100 degrees. Follow Up Care 01/17/2023 13:03:53 With:Dev MCKENZIE Address: [facility] [address] [place] [address]- Business (1) When:02/01/2024 09:22:46 [facility]06-27-2023 Note [id number]:[id number] 01-31-2023 NoteCustom Cystoscopy ? Voiding after the procedure: there may be some pain, burning, urgency, frequency and blood tingedurine following the procedure. These symptoms usually resolve within 2-5 days. Drink the amount of fluid it takes to keep the urine pink to yellow or clear in color. Drinking enough water and fluids will help to ease any discomfort after your procedure. ? If you are having problems that seem out of the ordinary, please call. ? If unable to contact your physician and you feel it is an emergency, go to the nearest emergency room or call 911 ? Diet ? you may resume your normal diet. ? Activity ? you may resume your normal activities ? Call if you have a fever over 100 degrees.[facility] 01-19-2023 Evaluation note* Encounter Date Diagnosis Assessment Notes Treatment Notes Treatment Clinical Notes Jan, Cervical spondylosis without myelopathy (ICD-10 - M47.812) Jan, Cervical muscle pain (ICD-10 - M54.2) Patient is voicing minimal complaints of pain at this time. He attributes this to a recent cervical trigger point injections. We will continue to monitor his symptoms in this region. In the future if the pain persists, we can consider repeat cervical facet medial branch block. In the meantime we will provide him with perscriptions for Voltaren gel and Pennsaid as he is unsure which his insurance will cover. Overall, patient believes their pain is reasonably well controlled and he is in agreement with our treatment plan. TELEPHONE VISIT ENDED Jan, Chronic pain (ICD-10 - G89.29) Jan, Other Above note writ ten by Nakia Cortez LPN, Refining Supervisor. Edited and approved by Dr. Sylvia Enriquez MD. [place] [facility] Other 06-02-2023 Hospital Discharge instructions Patient Education 01/06/2023 08:13:37 Prostate Cancer Screening Prostate Cancer Screening Prostate cancer screening is testing that is done to check for the presence of prostate cancer in men. The prostate gland is a walnut-sized gland that is located below the bladder and in front of therectum in males. The function of the prostate is to add fluid to semen during ejaculation. Prostatecancer is one of the most common types of cancer in men. Who should have prostate cancer screening? Screening recommendations vary based on age and other risk factors, as well as between the professional organizations who make the recommendations. In general, screening is recommended if: You are age 50 to 70 and have an average risk for prostate cancer. You should talk with your healthcare provider about your need for screening and how often screening should be done. Because most prostate cancers are slow growing and will not cause , screening in this age group is generally reserved for men who have a 10- to 15-year life expectancy. You are younger than age 50, and you have these risk factors: ?Having a father, brother, or uncle who has been diagnosed with prostate cancer. The risk is higherif your family member's cancer occurred at an early age or if you have multiple family members withprostate cancer at an early age. ?Being a male who is Black or is of [place] or sub-Saharan descent. In general, screening is not recommended if: You are younger than age 40. You are between the ages of 40 and 49 and you have no risk factors. You are 70 years of age or older. At this age, the risks that screening can cause are greater than the benefits that it may provide. If you are at high risk for prostate cancer, your health care provider may recommend that you have screenings more often or that you start screening at a younger age. How is screening for prostate cancer done? The recommended prostate cancer screening test is a blood test called the prostate-specific antigen(PSA) test. PSA is a protein that is made in the prostate. As you age, your prostate naturally produces more PSA. Abnormally high PSA levels may be caused by: Prostate cancer. An enlarged prostate that is not caused by cancer (benign prostatic hyperplasia, or BPH). This condition is very common in older men. A prostate gland infection (prostatitis) or urinary tract infection. Certain medicines such as male hormones (like testosterone) or other medicines that raise testosterone levels. A rectal exam may be done as part of prostate cancer screening to help provide information about the size of your prostate gland. When a rectal exam is performed, it should be done after the PSA level is drawn to avoid any effect on the results. Depending on the PSA results, you may need more tests, such as: A physical exam to check the size of your prostate gland, if not done as part of screening. Blood and imaging tests. A procedure to remove tissue samples from your prostate gland for testing (biopsy). This is the only way to know for certain if you have prostate cancer. What are the benefits of prostate cancer screening? Screening can help to identify cancer at an early stage, before symptoms start and when the cancer can be treated more easily. There is a small chance that screening may lower your risk of dying from prostate cancer. The chance is small because prostate cancer is a slow-growing cancer, and most men with prostate cancer from a different cause. What are the risks of prostate cancer screening? The main risk of prostate cancer screening is diagnosing and treating prostate cancer that would never have caused any symptoms or problems. This is called overdiagnosisand overtreatment. PSA screening cannot tell you if your PSA is high due to cancer or a different cause. A prostate biopsy is the only procedure to diagnose prostate cancer. Even the results of a biopsy may not tell you if your cancer needs to be treated. Slow-growing prostate cancer may not need any treatment other than monitoring, so diagnosing and treating it may cause unnecessary stress or other side effects. Questions to ask your health care provider When should I start prostate cancer screening? What is my risk for prostate cancer? How often do I need screening? What type of screening tests do I need? How do I get my test results? What do my results mean? Do I need treatment? Where to find more information [employer]: www.cancer.org [employer]: www.auanet.org Contact a health care provider if: You have difficulty urinating. You have pain when you urinate or ejaculate. You have blood in your urine or semen. You have pain in your back or in the area of your prostate. Summary Prostate cancer is a common type of cancer in men. The prostate gland is located below the bladder and in front of the rectum. This gland adds fluid to semen during ejaculation. Prostate cancer screening may identify cancer at an early stage, when the cancer can be treated more easily and is less likely to have spread to other areas of the body. The prostate-specific antigen (PSA) test is the recommended screening test for prostate cancer, butit has associated risks. Discuss the risks and benefits of prostate cancer screening with your health care provider. If you are age 70 or older, the risks that screening can cause are greater than the benefits that it may provide. This information is not intended to replace advice given to you by your health care provider. Make sure you discuss any questions you have with your health care provider. Document Revised: 01/17/2022 Document Reviewed: 01/17/2022 [employer] Patient Education 2022 [employer]. Follow Up Care 01/05/2023 13:34:32 With:BHARAT GARCIA, Dev Mares, URL Address: [facility] [address] , [place] [address]- When: Unknown [facility] 06-01-2023 Evaluation note* Encounter Date Diagnosis Assessment Notes Treatment Notes Treatment Clinical Notes Jan, Cervical spondylosis without myelopathy (ICD-10 - M47.812) Jan, Cervical muscle pain (ICD-10 - M54.2) We discussed treatment options for the patient's persistent cervical muscle pain. Patient shows notable muscle tenderness upon exam. Given location of pain and exam findings, patient cervical trigger point injections, which we will proceed with today in the office. Risks and benefits of procedure explained to patient; patient verbalizes understanding. Patient tolerated this well. In the future if the pain persists, we can consider repeat cervical facet medial branch block. Anatomy of spine discussed in detail with patient in regard to patients condition. Jan, Chronic pain (ICD-10 - G89.29) Jan, Other Above note writ ten by Nakia Cortez LPN, Refining Supervisor. Edited and approved by Dr. Sylvia Enriquez MD. [employer] Other 05-10-2023 Evaluation note* Encounter Date Diagnosis Assessment Notes Treatment Notes Treatment Clinical Notes December, Cervical spondylosis without myelopathy (ICD-10 - M47.812) Patients primary complaint today continues to be persistant cervical pain. He shows notable pain consistent with degenerative changes of the cervical spine. We discussed the possible benefit of treatment of the facet region for neck pain. Based on recent positive results, as well as location of pain and exam findings, patient is a reasonable candidate for repeat diagnostic bilateral cervical facet medial branch nerve blocks which we will proceed with. It was further explained should this provide significant short term relief we will proceed with a subsequent radiofrequency ablation. Risks and benefits of procedure explained to patient; patient verbalizes understanding. In the meantime, patient will continue Diclofenac Sodium 75 MG twice daily. He does not need a refil at this time. Anatomy of spine discussed in detail with patient in regards to patients condition. December, Cervical muscle pain (ICD-10 - M54.2) December, Chronic pain (ICD-10 - G89.29) December, Other Above note writ ten by Travis Chisholm MA, Refining Supervisor. Edited and approved by Dr. Sylvia Enriquez MD. [facility] Other [facility]-02-20[facility]* Encounter Date Diagnosis Assessment Notes Treatment Notes Treatment Clinical Notes Nov, Anemia due to acute blood loss (ICD-10 - D62) [employer] Other 03-24-2023 Evaluation note* Encounter Date Diagnosis Assessment Notes Treatment Notes Treatment Clinical Notes Oct, Hospital discharge follow-up (ICD-10 - Z09) Recommendations were made with regard to stool frequency and stool urgency. Patient given recommendations for utilization of loperamide to help with diarrhea. Patient also recommended to increase fiber intake education provided for this. Patient encouraged to continue water intake as well as electrolytes to prevent dehydration. Patient educated as to warning signs and encouraged to call with changing symptoms. We will follow as needed with patient. Patient to be seen by PCP and serial CBCs will be continued. [facility] Other 03-20-2023 Evaluation note* Encounter Date Diagnosis Assessment Notes Treatment Notes Treatment Clinical Notes Oct, Gastrointestinal hemorrhage with melena (ICD-10 - K92.1) Will recheck Hgb on 10/27. Will notify Dr. Draper of his course of care. Oct, Colitis (ICD-10 - K52.9) Finish antibiotics as prescribed. Oct, Spondylosis of cervical region without myelopathy or radiculopathy (ICD-10 - M47.812) Pt agrees to stay off diclofenac for 1-2 weeks. Taking tylenol for pain as suggested by the hospitalist. Oct, Inflammation of bladder (ICD-10 - N30.90) will forward CT results to Dr. Mckenzie for their records. [facility] Other 03-15-2023 Evaluation note* Encounter Date Diagnosis Assessment Notes Treatment Notes Treatment Clinical Notes Oct, Cervical spondylosis without myelopathy (ICD-10 - M47.812) Should his symptoms persist, we discussed treatment of the facet region to target the degenerative nature of his symptoms. We will follow up with the patient in one month, sooner if needed. Anatomy of spine discussed in detail with patient in regards to patients condition. Oct, Cervical muscle pain (ICD-10 - M54.2) Patient notes some improvement of his cervical pain however it remains bothersome. Patient appears to have a muscular component to his pain symptoms upon exam. It would be reasonable to proceed with bilateral cervical paraspinal and trapezius trigger point injections today in office. Risks and benefits of procedure explained to patient; patient verbalizes understanding. Patient tolerated well. In the meantime, patient will continue Diclofenac Sodium 75 MG twice daily. This medication was refilled today. Risks and side effects of this medication was discussed in detail with the patient who voiced understanding. Oct, Chronic pain (ICD-10 - G89.29) Oct, Other Above note writ ten by Travis Chisholm MA, Refining Supervisor. Edited and approved by Dr. Sylvia Enriquez MD. [place] [facility] Other 03-08-2023 History and physical note Author Rishabh Draper [facility] October 12, 2022 9:25am Note Date/Time October 12, 2022 9:25 am [facility] [address] [place] [address] Gastroenterology H&P Signed Patient: Lyudmila Becerril MR# : [id number] : 1945 Acct:[id number] Age/Sex: 77 / M Adm Date: 3 Loc: Room: Type: [facility] Attending Dr: Rishabh Draper MD Copies to: MD Ananya Mahmood MD~ Date of Service: 10/12/2022 HISTORY & PHYSICAL: Patient's history with special attention to the cardiovascular, pulmonary systems and the current problem was reviewed with the patient immediately prior to the procedure. Present medications and doses reviewed in the EMR. Allergies and pertinent laboratory tests were also reviewedat this time in the EMR. The physical examination, as below, was then performed. Indication, assessment and HPI: 77-year-old male presents for colonoscopy to evaluate positive Cologuard Family history of GI malignancy? No PHYSICAL EXAMINATION Mouth and Pharynx : Moist mucus membranes, normal dentition Cardiac: Regular rate, regular rhythm Pulmonary: Clear to auscultation bilaterally, no wheezing Neurological: Alert and oriented x3, no focal deficits noted Abdomen: Abdomen soft, non-tender REVIEW OF SYSTEMS Constitutional: Denies malaise, fevers Cardiovascular: Denies chest pain, palpitations Respiratory: Denies shortness of breath, wheezing Gastrointestinal: Per HPI Genitourinary: Denies dysuria, polyuria Musculoskeletal: Denies joint swelling, joint stiffness Neurological: Denies numbness, tingling Integumentary: Denies rashes, skin lesions Endocrine: Denies fatigue, weight loss Written informed consent obtained from the patient. Risks (including but not limited to perforation, infection, bloating, bleeding, need for emergent surgeryand loss of life), benefits and alternatives explained and questions answered. The patient verbalized understanding. Based on history patient is an appropriate candidate for the procedure. Rishabh Draper MD Documented By: Rishabh Draper MD 10/12/22923 Signed By: <Electronically signed by Rishabh Draper MD> 10/12/22924 [facility] Work Phone: 1(796) 623-408603-08-2023 [facility] Evaluation note* Encounter Date Diagnosis Assessment Notes Treatment Notes Treatment Clinical Notes Sep, Osteoarthritis of left thumb (ICD-10 - M18.12) Patient instructed on the continuation of bracing. We also discussed surgical tightening of joint capsule. Sep, Ganglion cyst of finger of left hand (ICD-10 - M67.442) Sep, De Quervain's tenosynovitis, left (ICD-10 - M65.4) Sep, Dupuytren's disease of palm with nodules without contracture (ICD-10 - M72.0) Sep, Other specified postprocedural states (ICD-10 - Z98.890) [facility] Other 02-01-2023 Evaluation note* Encounter Date Diagnosis Assessment Notes Treatment Notes Treatment Clinical Notes Sep, Cervical spondylosis without myelopathy (ICD-10 - M47.812) Patients primary complaint today is progressing cervical pain. Recent imaging results do show evidence of multilevel stenosis however patients symptoms appear more consistent with degenerative changes and some component of muscular pain. We will start treatment conservatively. I will refer the patient to physical therapy for further treatment. In the meantime, I will prescribe Diclofenac Sodium 75 MG twice daily. Risks and side effects of this medication was discussed in detail with the patient who voiced understanding. Should his symptoms persist after completion of physical therapy, we discusse other options such as possible trigger point inections vs treatment of the facet region to target the degenerative nature of his symptoms. We will follow up with the patient in six weeks, sooner if needed. Anatomy of spine discussed in detail with patient in regards to patients condition. Sep, Cervical muscle pain (ICD-10 - M54.2) Patient also shows some muscle tenderness upon exam. Should his symptoms persist following therapy we can consider proceeding with trigger point injections in the office. Sep, Chronic pain (ICD-10 - G89.29) Sep, Other Above note writ ten by Travis Chisholm MA, Refining Supervisor. Edited and approved by Dr. Sylvia Enriquez MD. Medical decision making shows a new problem to me with further workup planned or suggested with the potential for extensive treatment options that were considered with the most applicable given this patient's situation as noted above. Treatment options considered include a combination of physical therapy approaches, pharmacologic management, and interventional procedures. Those most applicable to the patient were discussed at this time. Risk of complications and/or morbidity and mortality is high given that acute and chronic pain poses a threat to life and bodily function if undertreated, poorly treated or with failure to maintain adequate treatment and timely followup. Given the serious and fluctuating nature of pain with extensive consideration for whenever pain changes, there always remains the possibility of prolonged functional impairment requiring constant patient reassessment and high-level medical decision making. The amount and complexity of data reviewed is high given that patient labs, radiology reports, and other test were obtained, reviewed and summarized as applicable from the physician portal and/or outside medical records. Pertinent positive and negative findings were considered in medical decision-making. [employer] Other 01-24-2023 Evaluation note* Encounter Date Diagnosis Assessment Notes Treatment Notes Treatment Clinical Notes Aug, Neck pain (ICD-10 - M54.2) Aug, Spondylosis of cervical region without myelopathy or radiculopathy (ICD-10 - M47.812) I independently reviewed the MRI of the cervical spine and the report. The patient definitely has spondylitic changes but he has no evidence whatsoever of radiculopathy. He has neck pain and stiffness which is not a surgical option. He has been told this a year previously by my previous partner also. I would recommend pain management, we have given him a referral. No surgical intervention is recommended Aug, Bilateral occipital neuralgia (ICD-10 - M54.81) [facility] Other 12-14-2022 Evaluation note* Encounter Date Diagnosis Assessment Notes Treatment Notes Treatment Clinical Notes Jul, Osteoarthritis of left thumb (ICD-10 - M18.12) Patient given order for modification of thermoplast brace to provide dorsal support to reduce CMC Jul, Ganglion cyst of finger of left hand (ICD-10 - M67.442) Jul, De Quervain's tenosynovitis, left (ICD-10 - M65.4) Jul, Dupuytren's disease of palm with nodules without contracture (ICD-10 - M72.0) Jul, Other specified postprocedural states (ICD-10 - Z98.890) [facility] Other 09-20-2022 Evaluation note* Encounter Date Diagnosis Assessment Notes Treatment Notes Treatment Clinical Notes Apr, Osteoarthritis of left thumb (ICD-10 - M18.12) Patient instructed to use splint with activity, order given Apr, Ganglion cyst of finger of left hand (ICD-10 - M67.442) Apr, De Quervain's tenosynovitis, left (ICD-10 - M65.4) Apr, Dupuytren's disease of palm with nodules without contracture (ICD-10 - M72.0) Apr, Other specified postprocedural states (ICD-10 - Z98.890) [facility] Other 08-15-2022 Hospital Discharge instructions Patient Education 03/21/2022 12:46:34 Kidney Stones, Kmmu-fh-Gnts Kidney Stones Kidney stones are rock-like masses that form inside of the kidneys. Kidneys are organs that make pee (urine). A kidney stone may move into other parts of the urinary tract, including: The tubes that connect the kidneys to the bladder (ureters). The bladder. The tube that carries urine out of the body (urethra). Kidney stones can cause very bad pain and can block the flow of pee. The stone usually leaves your body (passes) through your pee. You may need to have a doctor take out the stone. What are the causes? Kidney stones may be caused by: A condition in which certain glands make too much parathyroid hormone (primary hyperparathyroidism). A buildup of a type of crystals in the bladder made of a chemical called uric acid. The body makes uric acid when you eat certain foods. Narrowing (stricture) of one or both of the ureters. A kidney blockage that you were born with. Past surgery on the kidney or the ureters, such as gastric bypass surgery. What increases the risk? You are more likely to develop this condition if: You have had a kidney stone in the past. You have a family history of kidney stones. You do not drink enough water. You eat a diet that is high in protein, salt (sodium), or sugar. You are overweight or very overweight (obese). What are the signs or symptoms? Symptoms of a kidney stone may include: Pain in the side of the belly, right below the ribs (flank pain). Pain usually spreads (radiates) to the groin. Needing to pee often or right away (urgently). Pain when going pee (urinating). Blood in your pee (hematuria). Feeling like you may vomit (nauseous). Vomiting. Fever and chills. How is this treated? Treatment depends on the size, location, and makeup of the kidney stones. The stones will often pass out of the body through peeing. You may need to: Drink more fluid to help pass the stone. In some cases, you may be given fluids through an IV tube put into one of your veins at the hospital. Take medicine for pain. Make changes in your diet to help keep kidney stones from coming back. Sometimes, medical procedures are needed to remove a kidney stone. This may involve: A procedure to break up kidney stones using a beam of light (laser) or shock waves. Surgery to remove the kidney stones. Follow these instructions at home: Medicines Take [id number] and prescription medicines only as told by your doctor. Ask your doctor if the medicine prescribed to you requires you to avoid driving or using heavy machinery. Eating and drinking Drink enough fluid to keep your pee pale yellow. You may be told to drink at least 8 10 glasses of water each day. This will help you pass the stone. If told by your doctor, change your diet. This may include: ?Limiting how much salt you eat. ?Eating more fruits and vegetables. ?Limiting how much meat, poultry, fish, and eggs you eat. Follow instructions from your doctor about eating or drinking restrictions. General instructions Collect pee samples as told by your doctor. You may need to collect a pee sample: ?24 hours after a stone comes out. ?8 12 weeks after a stone comes out, and every 6 12 months after that. Strain your pee every time you pee (urinate), for as long as told. Use the strainer that your doctor recommends. Do not throw out the stone. Keep it so that it can be tested by your doctor. Keep all follow-up visits as told by your doctor. This is important. You may need follow-up tests. How is this prevented? To prevent another kidney stone: Drink enough fluid to keep your pee pale yellow. This is the best way to prevent kidney stones. Eat healthy foods. Avoid certain foods as told by your doctor. You may be told to eat less protein. Stay at a healthy weight. Where to find more information National Kidney Foundation (NKF): www.kidney.org [employer] (UCF): www.urologyhealth.org Contact a doctor if: You have pain that gets worse or does not get better with medicine. Get help right away if: You have a fever or chills. You get very bad pain. You get new pain in your belly (abdomen). You pass out (faint). You cannot pee. Summary Kidney stones are rock-like masses that form inside of the kidneys. Kidney stones can cause very bad pain and can block the flow of pee. The stones will often pass out of the body through peeing. Drink enough fluid to keep your pee pale yellow. This information is not intended to replace advice given to you by your health care provider. Make sure you discuss any questions you have with your health care provider. Document Released: 01/09/2009 Document Revised: 12/10/2019 Document Reviewed: 12/10/2019 [employer] Patient Education 2019 [employer]. Follow Up Care 01/15/2021 09:47:41 With:BHARAT GARCIA, Dev Mares, URL Address: [facility] [address], [place] [address]- [phone] When: Unknown [facility] 06-21-2022 Evaluation note* Encounter Date Diagnosis Assessment Notes Treatment Notes Treatment Clinical Notes Jan, Osteoarthritis of left thumb (ICD-10 - M18.12) Activity as tolerated, patient given info on Dupuytrens Jan, Ganglion cyst of finger of left hand (ICD-10 - M67.442) Jan, De Quervain's tenosynovitis, left (ICD-10 - M65.4) Jan, Dupuytren's disease of palm with nodules without contracture (ICD-10 - M72.0) Jan, Other specified postprocedural states (ICD-10 - Z98.890) [facility] Other 04-20-2022 Evaluation note* Encounter Date Diagnosis Assessment Notes Treatment Notes Treatment Clinical Notes Nov, Spondylosis of cervical region without myelopathy or radiculopathy (ICD-10 - M47.812) I have spent a considerable amount of time face to face with the patient reviewing imaging and discussing the the management options with the patient. At this point in time I do not feel he warrants surgical intervention. Ultimate surgery for this would be a 3 level anterior cervical discectomy and fusion from C4-C7. I think continued conservative treatment with physical therapy exercise program would be most warranted. I wwill send a referral for physical therapy. I would be happy to see him again should he have persistent symptoms. [facility] Other 02-01-2022 Evaluation note* Encounter Date Diagnosis Assessment Notes Treatment Notes Treatment Clinical Notes Sep, Osteoarthritis of left thumb (ICD-10 - M18.12) Cast split today. Patient reminded of cast care Sep, Ganglion cyst of finger of left hand (ICD-10 - M67.442) Sep, De Quervain's tenosynovitis, left (ICD-10 - M65.4) Sep, Other specified postprocedural states (ICD-10 - Z98.890) Sep, Encounter for cast check (ICD-10 - Z46.89) [facility] Other 01-28-2022 Evaluation note* Encounter Date Diagnosis Assessment Notes Treatment Notes Treatment Clinical Notes Aug, Osteoarthritis of left thumb (ICD-10 - M18.12) Aug, Ganglion cyst of finger of left hand (ICD-10 - M67.442) Aug, De Quervain's tenosynovitis, left (ICD-10 - M65.4) Aug, Other specified postprocedural states (ICD-10 - Z98.890) Patient instructed on cast care including keeping it clean and dry as well as placing nothing in the cast. Also informed to call office immediately or go to ER if any notable increase in pain or swelling occurs in the extremity. 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 We discussed the importance of continuing to work on range of motion and strength exercise. Jun, Trochanteric bursiti s of right hip (ICD-10 - M70.61) This appears to be pain secondary to greater trochanteric bursitis. Discussed treatment options as oral or topical NSAIDs, physical therapy with iontophoresis, or cortisone injection to the greater trochanteric bursa. Patient was prepped and cortisone was injected into the greater trochanteric bursa under sterile conditions. Patient tolerated injection well with no adverse reactions. Jun, Right hip pain (ICD-10 - M25.551) [facility] Other 11-17-2021 Evaluation note* Encounter Date Diagnosis Assessment Notes Treatment Notes Treatment Clinical Notes Jun, Osteoarthritis of left thumb (ICD-10 - M18.12) Left CMC injected with cortisone under sterile technique, patient tolerated well Jun, Ganglion cyst of finger of left hand (ICD-10 - M67.442) Jun, De Quervain's tenosynovitis, left (ICD-10 - M65.4) Jun, Pain of left thumb (ICD-10 - M79.645) [facility] Other Evaluation + Plan note Future Appointments Appointment Date:03/31/2023 08:15:00 AM Scheduled Provider:Dev MCKENZIE MD Location:[facility] Appointment Type:URO Office Visit Diagnostic Tests Pending * [facility] Future Appointments Appointment Date:03/31/2023 08:15:00 AM Scheduled Provider:Dev MCKENZIE MD Location:[facility] Appointment Type:URO Office Visit [facility] evalrhdbjx noteNo assessment information available [facility] Work Phone: Evaluation noteNo [place]Nort [facility] Other Evaluation note* Diagnosis Onset Date Resolution Status History of total left knee replacement acute Muscle strain of left lower extremity acute [facility] Work Phone: Hisvngv general Narrative - Reported* Type Description Date Medical History high cholesterol Medical History high blood pressure Surgical History sinoplastic Surgical History rhinoplastic Surgical History prostatectomy Surgical History hernia repair Surgical History eyes lift Surgical History tonsillectomy and adenoidectomy Surgical History knee arthroscopy x5 left Surgical History right knee arthroscopy Surgical History neuroma left foot removed Surgical History colonoscopy Surgical History heart catheterization Surgical History right knee arthroplasty 2019 Surgical History left knee arthroplasty Hospitalization History see above [facility] Other Hisjgrh general Narrative - Reported* Type Description Date Medical History high cholesterol Medical History high blood pressure Surgical History sinoplastic Surgical History rhinoplastic Surgical History prostatectomy Surgical History hernia repair Surgical History eyes lift Surgical History tonsillectomy and adenoidectomy Surgical History knee arthroscopy x5 left Surgical History right knee arthroscopy Surgical History neuroma left foot removed Surgical History colonoscopy Surgical History heart catheterization Surgical History right knee arthroplasty 2019 Surgical History left knee arthroplasty Surgical History Left CMC arthroplasty Hospitalization History see above e-volo Other Histnzb general Narrative - Reported* Type Description Date Medical History high cholesterol Medical History high blood pressure Medical History Arthritis Medical History kidney stones Medical History migraine headache Medical History pneumonia Medical History prostate Surgical History sinoplastic Surgical History rhinoplastic Surgical History prostatectomy Surgical History hernia repair Surgical History eyes lift Surgical History tonsillectomy and adenoidectomy Surgical History knee arthroscopy x5 left Surgical History right knee arthroscopy Surgical History neuroma left foot removed Surgical History colonoscopy Surgical History heart catheterization Surgical History right knee arthroplasty 2019 Surgical History left knee arthroplasty Surgical History Left CMC arthroplasty Hospitalization History see above e-volo Other History general Narrative - Reported* Type Description Date Medical History high cholesterol Medical History high blood pressure Medical History Arthritis Medical History kidney stones Medical History migraine headache Medical History pneumonia Medical History prostate Surgical History sinoplastic Surgical History rhinoplastic Surgical History prostatectomy Surgical History hernia repair Surgical History eyes lift Surgical History tonsillectomy and adenoidectomy Surgical History knee arthroscopy x5 left Surgical History right knee arthroscopy Surgical History neuroma left foot removed Surgical History colonoscopy Surgical History heart catheterization Surgical History right knee arthroplasty 2019 Surgical History left knee arthroplasty Surgical History Left CMC arthroplasty Surgical History Colonoscopy 12/2022 Hospitalization History see above e-volo Other Hospital course Narrative No data available for this section [facility] Discharge instructions Additional Instructions DISCHARGE INSTRUCTIONS FOR COLONOSCOPY WHAT TO EXPECT: - You may feel full, gassy or cramping after your procedure. In some cases, this may be from a few hours to a day. Walking may help relieve the discomfort. - If you have polyp(s) removed you may note some minor bloody discharge after your first bowel movements. - You should begin to recover from anesthesia within 1 hour of the procedure, however may feel groggy for the next 24 hours. DO's AND DON'Ts: - Call your doctor right away if you have a hard abdomen, severe pain, are passing lots of bright red blood or clots. - Call your doctor if you develop any rashes, hives or difficulty breathing. - Let your doctor know if you have not had a bowel movement by 3 days after your procedure. - If you take 81 mg aspirin for your heart it is safe to resume this medication. - If you take other blood thinner medications your doctor will instruct you when these can safely be resumed. - Do NOT drive for 24 hours. - Do NOT operate machinery such as power tools, lawn mowers, snow blowers, sewing machines, etc. for 24 hours. - Avoid alcoholic beverages and drugs for allergies, nerves, or sleep. - Do NOT stay alone. Do NOT leave your child unattended. - Do NOT make important personal or business decisions or sign any legal documents. - Eat solid foods and drink liquids in smaller amounts than usual until normal appetite returns. If you should experience an upset stomach, liquids high in sugar content (soda, Cyrus-Aid, non-acid juices) are recommended. - You can resume normal activities tomorrow. FOLLOW UP & RECOMMENDATIONS: -You do not need any further colorectal cancer screening. You should not do any further stool testing such as Cologuard or FIT. -Notify the doctor if you have any problems. -Follow-up with Dr. Draper as needed -Follow up with PCP. 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) Referral Organization [facility] Referring Provider First Name Anthony Referring Provider Last Name Jennifer Referring Provider Specialty Neurologica l Surgery Referred Organization [facility] [place] Referred Provider Sylvia Enriquez Referred Address [address] [facility] [place],[address] Referred Provider Specialty Pain Medicin e Referral Priority Routine Referral Appointment Date 2022-09-07 General Notes Adrianna Fatima 023 11:27:21 AM >Received today and sent P2P Mey Mobley 09/05/2022 01:18:25 PM >pt has been scheduled 09/07/22 Reason eval and treat Diagnosis 1 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 Chief Complaint and Reason for Visit Chief Complaint Elvated PSA Chief Complaint positive stool blood test Chief Complaint positive stool blood test Neck Pain Chief Complaint NEW LT LE INJURY NX T84.84XA - Pain due to internal orthopedic prosthe Reason for Visit History of total lef t knee replacement Muscle strain of left lower extremity Chief Complaint NEW LT LE INJURY NX T84.84XA n89.8x6 Reason for Visit History of total lef t knee replacement Muscle strain of left lower extremity Family History No Family History Records Found Relationship Condition Age at Onset Recorded Date/T sameer father Coronary artery disease Unknown Not Specified Alzheimer's disease Unknown Relationship Condition Age at Onset Recorded Date/T sameer father Coronary artery disease Unknown Not Specified Alzheimer's disease Unknown father Unknown Not Specified Unknown Advance Directives No Advanced Directives Records Found Advance Directive Response Recorded Date/ Time Advance Directives No January 15 8:21am Advance Directive Response Recorded Date/ Time Advance Directives No January 15 7:21am Summary Purpose Additional Source Comments REASON FOR VISIT (unrecogniz ed section and content) Recheck Left WristRecheck Ri ght TKA, New Right Hip PainRecheck Left WristRecheck Left Hand and Cast DiscomfortRecheck Left HandReferred by Dr. Ananya Rodriguez Cervical StenosisRecheck Left HandRecheck Left ThumbRecheck Left HandMAIL PPWreferred by Dr. Ananya Rodriguez Cervical Disc DisorderNeurosurgery Office NotesREF BY DR ANTHONY RODRIGUEZ FOR NECK PAIN, SPONDYLOSISRecheck Left Thumb6 WEEKStbhNSAIDsrecent hospital stayhgbINFECTIOUS DIARRHEAlab orderlabsF/U BOB CERVICAL FACET MBBF/U BOB CERVICAL FACET MBB2 WEEK PHONE FOLLOW UPSick-CoughCough, Sick, COVID Negativecxrpersistent cough6 month Follow up Care Team (unrecognized sect ion and content) Team Status: Active Member Role Status Dates Ananya Rodriguez MD Primary Care Provider Active Team Status: Active Member Role Status Dates Ananya Rodriguez MD Primary Care Provide r, Attending Provider Active Start: December 23, 2023 Team Status: Inactive Member Role Status Dates Ananya Rodriguez MD Primary Care Provider Active Start: December 26, 2023 End: December 26, 2023 Sylvia Barros MD Attending Provider Active Star t: December 26, 2023 End: December 26, 2023 Team Status: Active Member Role Status Dates Sylvia Barros MD Attending Provider Active Star t: December 26, 2023 Ananya Rodriguez MD Primary Care Provider Active Start: December 26, 2023 Team Status: Inactive Member Role Status Dates Ananya Rodriguez MD Primary Care Provider Active Dev Mckenzie MD Attending Provider Active Team Status: Inactive Member Role Status Dates Ananya Rodriguez MD Primary Care Provider Active Rishabh Draper MD Attending Provider Active Team Status: Inactive Member Role Status Dates Ananya Rodriguez MD Primary Care Provider Active Sylvia Enriquez MD Attending Provider Active Team Status: Inactive Member Role Status Dates Sylvia Barros MD Attending Provider Active Star t: December 26, 2023 End: December 26, 2023 nAanya Rodriguez MD Primary Care Provider Active Start: December 26, 2023 End: December 26, 2023 Goals (unrecognized section and content) Goals may be documented in a n alternate section (unrecognized sect ion and content) No Status Records FoundNo Status Records FoundNo Status Records FoundNo Status Records Found INFORMATION SOURCE (unrecogn ized section and content) DATE CREATED AUTHOR 12/03/2022 [facility] DATE CREATED AUTHOR AUTHOR'S ORGANIZ ATION 12/28/2023 [facility] DATE CREATED AUTHOR AUTHOR'S ORGANIZ ATION 01/12/2024 [facility] DATE CREATED AUTHOR AUTHOR'S ORGANIZ ATION 01/26/2024 [facility] FOR RECORDS PERTAINING TO PATIENTS WHO ARE OR HAVE BEEN ENROLLED IN A CHEMICAL DEPENDENCY/SUBSTANCEABUSE PROGRAM, SOME INFORMATION MAY BE OMITTED. This clinical summary was aggregated from multiple sources. Caution should be exercised in using it in the provision of clinical care. This summary normalizes information from multiple sources, and as a consequence, information in this document may materially change the coding, format and clinical context of patient data. In addition, data may be omitted in some cases. CLINICAL DECISIONS SHOULD BE BASED ON THE PRIMARY CLINICAL RECORDS. [employer] provides no warranty or guarantee of the accuracy or completeness of information in this document.
[2024-02-12 09:45] LABS: Basophils Absolute Auto 0.1 10^3/uL (0.0-0.1); Basophils Percent Auto 0.6 % (0.2-2.0); Eosinophils Absolute Auto 0.3 10^3/uL (0.0-0.7); Eosinophils Percent Auto 3.3 % (0.9-7.0); Hematocrit 44.4 % (42.0-54.0); Hemoglobin 14.9 g/dL (14.0-18.0); Immature Granulocytes Abs Auto 0.03 10^3/uL (0.00-0.03); Immature Granulocytes Pct Auto 0.4 % (0.0-0.5); Lymphocytes Absolute Auto 2.1 10^3/uL (1.2-3.8); Lymphocytes Percent Auto 24.7 % (20.5-60.0); Mean Corpuscular HGB Conc 33.6 g/dL (29.9-35.2); Mean Corpuscular Volume 95.3 fL (80.0-94.0); Mean Platelet Volume 10.3 fL (9.5-13.5); Monocytes Percent Auto 11.2 % (1.7-12.0); Neutrophils Absolute Auto 5.1 10^3/uL (1.4-6.5); Neutrophils Percent Auto 59.8 % (43.0-75.0); Platelet Count 226 10^3/uL (150-450); Red Blood Count 4.66 10^6/uL (4.70-6.10); Red Cell Distribution Width 13.7 % (11.0-15.0); White Blood Count 8.5 10^3/uL (4.0-11.0)
[2024-02-12 09:52] LABS: Anion Gap 13.1; BUN Creatinine Ratio 17.9; Calcium 9.1 mg/dL (8.5-10.1); Carbon Dioxide 26.2 mmol/L (21.0-32.0); Chloride 106 mmol/L (98-107); Estimated GFR (African America >60 (>=60); Estimated GFR (Non-African Ame >60 (>=60); Glucose 109 mg/dL (74-106); Potassium 4.3 mmol/L (3.5-5.1); Sodium 141 mmol/L (136-145)
== END 2024-02-12 09:13 | disposition home or self-care (01) ==
LOC: LAB 09:14
PROVIDERS: PCP Family Medicine; Visit Provider Internal Medicine Interventional Cardiology
DX: R94.39 Abnormal result of other cardiovascular function study (principal); I25.728 Atherosclerosis of autologous artery coronary artery bypass graft(s) with other forms of angina pectoris
CPT/HCPCS: 36415; 80048; 85025

== ENCOUNTER 2024-02-13 11:59 | Outpatient (OUT) | payer MEDICARE, SELFPAY ==
--- NOTE | 2024-02-13 | XR_ITS ---
The [address] [address] Patient Name: LYUDMILA BECERRIL MRN: [id number] date: 1945 Sex: M Assigned Patient Location: LAB Current Patient Location: Accession/Order Number: [id number] Exam Date: 02/13/2024 12:20 Report Date: 02/14/2024 07:26 At the request of: ANGUS CORDOVA Procedure: XR abdomen 1V EXAMINATION: XR abdomen 1V HISTORY: kidney stone COMPARISON: 10/20/2022 CT exam FINDINGS: KIDNEY/URETER - RIGHT: Punctate nephrolithiasis. 4 mm calcification projects below the right L3 transverse process a ureterolith is suspected KIDNEY/URETER - LEFT: Multiple punctate nephroliths PELVIS: No visible ureteral calcifications. Any visible calcifications favor phleboliths. BOWEL: No abnormal dilation or deviation. BONES: No acute abnormality. Degenerative spondylosis of the spine OTHER: Negative. No abnormal gaseous collections. XR/XR abdomen 1V IMPRESSION: Bilateral nephrolithiasis Suspected 4 mm right mid ureterolith Electronically authenticated by: SEAN TYLER Date: 02/14/2024 07:26
[2024-02-14 04:07] LABS: PSA, Free 1.93 ng/mL; Prostate Specific Ag 6.5 ng/mL (0.0-4.0)
== END 2024-02-13 12:00 | disposition home or self-care (01) ==
LOC: LAB 12:02
PROVIDERS: PCP Family Medicine; Visit Provider Physician Assistant
DX: N20.0 Calculus of kidney (principal); R97.20 Elevated prostate specific antigen [PSA]; N40.1 Benign prostatic hyperplasia with lower urinary tract symptoms
CPT/HCPCS: 36415; 74018; 84153; 84154

== ENCOUNTER 2024-02-26 08:29 | Outpatient (OUT) | payer MEDICARE, SELFPAY ==
--- NOTE | 2024-02-26 08:44 | XR_ITS ---
The [address] [address] Patient Name: LYUDMILA BECERRIL MRN: [id number] date: 1945 Sex: M Assigned Patient Location: LAB Current Patient Location: LAB Accession/Order Number: [id number] Exam Date: 02/26/2024 09:00 Report Date: 02/26/2024 11:41 At the request of: DEQUAN NICHOLSON Procedure: XR IVP w KUB EXAMINATION: XR IVP w KUB HISTORY: Kidney Stone COMPARISON: No relevant comparison available. TECHNIQUE: After obtaining patient consent a alcohol still operator image was obtained followed by injection of 100cc of Omnipaque 300 IV contrast. Immediate nephrographic images were obtained. Corticomedullary and urographic phase images were obtained at 5, 10, 15 and 20 minutes. 15 minute oblique images were also obtained. FINDINGS: KIDNEY/URETER - RIGHT: Numerous nephroliths KIDNEY/URETER - LEFT: Numerous nephroliths PELVIS: No visible ureteral calcifications. Any visible calcifications favor phleboliths. NEPHROGRAPHIC PHASE: Normal, symmetric size, contour, and orientation. Normal and symmetric time of contrast uptake. CORTICOMEDULLARY: No mass or abnormal appearing medulla, pyramids, or collecting system. UROGRAPHIC PHASE: Normal caliber, course, and number of ureters. BLADDER: Normal size and contour. BOWEL: No abnormal dilation or deviation. BONES: No acute abnormality. OTHER: Negative. No abnormal gaseous collections. XR/XR IVP w KUB IMPRESSION: Bilateral nonobstructing nephrolithiasis No obstructive uropathy Electronically authenticated by: SEAN TYLER Date: 02/26/2024 11:41
[2024-02-26 08:49] LABS: Estimated GFR (African America >60 (>=60); Estimated GFR (Non-African Ame >60 (>=60)
== END 2024-02-26 08:30 | disposition home or self-care (01) ==
LOC: LAB 08:30
PROVIDERS: PCP Family Medicine; Visit Provider Urology
DX: N20.0 Calculus of kidney (principal)
CPT/HCPCS: 36415; 74400; 82565; Q9967